=== PATIENT | female | born 1960 | race Caucasian/White ===

== ENCOUNTER 2017-12-23 08:45 | Inpatient (IN) | payer BC ==
[2017-12-23] MEDS ORDERED: MORPHINE SULFATE 2 MG/ML SYRINGE IVP STA (09:09)
[2017-12-23] MEDS ORDERED: SODIUM CHLORIDE 0.9% 500 ML 500 ML IV STA (09:09)
[2017-12-23] MEDS ORDERED: ONDANSETRON 4 MG/2 ML VIAL IVP STA (09:09)
--- NOTE | 2017-12-23 09:28 | ED ---
General Adult HPI - General Stated complaint: WEAKNESS Time Seen by Provider: 12/23/17 08:47 Source: patient, EMS, RN notes reviewed Mode of arrival: EMS Limitations: physical limitation - History of Present Illness Initial comments: This a 57-year-old female presents emergency department via EMS chief complaints weakness, abdominal pain. Patient states that she injured her back Thursday getting out of her vehicle. She states she felt a twinge. States pain progressive worsened and was unable to get out of bed on Thursday. She states she laid in bed for 2 days essentially was able to get up with some relief after taking some tramadol. Patient states that the recliner her doctor called and they placed her on some steroids. Patient states that has not helped as she stopped taking multiple medications including her diuretics because she cannot get up to go to the bathroom. Patient denies any chest pain or shortness of breath. Patient states that she just feels weak, run down. Patient states she has low back pain and pain and recent her legs. She states her urine is foul smelling, very dark in nature. Patient has no abdominal pain denies any incontinence. - Related Data Home Medications Medication Instructions Recorded Confirmed Cyanocobalamin [Vitamin B-12] 500 mcg PO DAILY 02/27/15 12/23/17 Ascorbic Acid [Vitamin C] 1,000 mg PO DAILY 12/23/17 12/23/17 Celery Seed 1 tab PO DAILY 12/23/17 Potter Extract 1 tab PO DAILY 12/23/17 Cholecalciferol [Vitamin D3] 1,000 unit PO DAILY 12/23/17 12/23/17 Coconut Oil Caps 1 cap PO DAILY 12/23/17 12/23/17 Colchicine 1.2 mg PO DIRECTED 12/23/17 12/23/17 Fish Oil/Dha/Epa [Fish Oil 1,200 1,200 mg PO DAILY 12/23/17 12/23/17 mg Fish Oil] Multivitamins, Thera [Multivitamin 1 tab PO DAILY 12/23/17 12/23/17 (formulary)] Potassium 198 mg PO DAILY 12/23/17 12/23/17 Spironolactone-Hctz 25-25Mg 1 tab PO DAILY 12/23/17 12/23/17 [Aldactazide 25-25 MG] methylPREDNISolone [Medrol Dose See Taper PO DIRECTED 12/23/17 12/23/17 Pack] Previous Rx's Medication Instructions Recorded Furosemide [Lasix] 40 mg PO DAILY #30 tab 03/03/15 Allergies Allergy/AdvReac Type Severity Reaction Status Date / Time Tetracyclines Allergy Rash/Hives Verified 12/23/17 09:26 Review of Systems ROS Statement: Those systems with pertinent positive or pertinent negative responses have been documented in the HPI. ROS Other: All systems not noted in ROS Statement are negative. Past Medical History Past Medical History: No Reported History Additional Past Medical History / Comment(s): uti, leg swelling, broke lt leg. History of Any Multi-Drug Resistant Organisms: None Reported Past Surgical History: Adenoidectomy, Appendectomy, Cholecystectomy, Orthopedic Surgery, Tonsillectomy Additional Past Surgical History / Comment(s): orif lt leg has plate and screws Past Anesthesia/Blood Transfusion Reactions: No Reported Reaction Past Psychological History: No Psychological Hx Reported Smoking Status: Never smoker Past Alcohol Use History: None Reported Past Drug Use History: None Reported - Past Family History Father History Unknown: Yes Mother History Unknown: Yes General Exam Limitations: physical limitation General appearance: alert, in no apparent distress, obese Head exam: Present: atraumatic, normocephalic, normal inspection Respiratory exam: Present: normal lung sounds bilaterally. Absent: respiratory distress, wheezes, rales, rhonchi, stridor Cardiovascular Exam: Present: regular rate, normal rhythm, normal heart sounds. Absent: systolic murmur, diastolic murmur, rubs, gallop, clicks GI/Abdominal exam: Present: soft, normal bowel sounds. Absent: distended, tenderness, guarding, rebound, rigid Extremities exam: Present: other (Patient does have full range of motion lower extremities though difficult to move, neurovascular intact) Back exam: Present: tenderness. Absent: full ROM Neurological exam: Present: alert, oriented X3, CN II-XII intact, reflexes normal. Absent: motor sensory deficit Skin exam: Present: warm, dry, intact, normal color. Absent: rash Course Vital Signs 12/23/17 12/23/17 09:07 09:42 Temperature 98.0 F Pulse Rate 90 90 Respiratory 18 18 Rate Blood Pressure 146/72 150/74 O2 Sat by Pulse 91 L 93 L Oximetry Medical Decision Making - Medical Decision Making 57-year-old female presented for multiple complaints patient has compression fracture, urinary tract infection dehydration unable to care for self will be admitted - Lab Data Result diagrams: 12/23/17 09:37 12/23/17 09:37 Lab Results 12/23/17 12/23/17 12/23/17 Range/Units 09:37 09:37 09:37 WBC 15.2 H (3.8-10.6) k/uL RBC 4.59 (3.80-5.40) m/uL Hgb 13.0 (11.4-16.0) gm/dL Hct 39.5 (34.0-46.0) % MCV 86.1 (80.0-100.0) fL MCH 28.2 (25.0-35.0) pg MCHC 32.8 (31.0-37.0) g/dL RDW 15.6 H (11.5-15.5) % Plt Count 461 H (150-450) k/uL Neutrophils % 86 % Lymphocytes % 7 % Monocytes % 6 % Eosinophils % 1 % Basophils % 0 % Neutrophils # 13.1 H (1.3-7.7) k/uL Lymphocytes # 1.1 (1.0-4.8) k/uL Monocytes # 0.8 (0-1.0) k/uL Eosinophils # 0.1 (0-0.7) k/uL Basophils # 0.0 (0-0.2) k/uL PT (9.0-12.0) sec INR (<1.2) APTT (22.0-30.0) sec Sodium 138 (137-145) mmol/L Potassium 3.4 L (3.5-5.1) mmol/L Chloride 94 L (98-107) mmol/L Carbon Dioxide 32 H (22-30) mmol/L Anion Gap 12 mmol/L BUN 17 (7-17) mg/dL Creatinine 0.53 (0.52-1.04) mg/dL Est GFR (CKD-EPI)AfAm >90 (>60 ml/min/1.73 sqM) Est GFR (CKD-EPI)NonAf >90 (>60 ml/min/1.73 sqM) Glucose 127 H (74-99) mg/dL Plasma Lactic Acid Fredo (0.7-2.0) mmol/L Calcium 8.5 (8.4-10.2) mg/dL Total Bilirubin 0.7 (0.2-1.3) mg/dL AST 38 H (14-36) U/L ALT 51 (9-52) U/L Alkaline Phosphatase 113 (38-126) U/L Total Creatine Kinase 134 (30-135) U/L CK-MB (CK-2) 0.5 (0.0-2.4) ng/mL CK-MB (CK-2) Rel Index 0.4 Troponin I <0.012 (0.000-0.034) ng/mL Total Protein 7.0 (6.3-8.2) g/dL Albumin 3.3 L (3.5-5.0) g/dL Amylase 34 (30-110) U/L Lipase 54 (23-300) U/L Urine Color Urine Appearance (Clear) Urine pH (5.0-8.0) Ur Specific [place] (1.001-1.035) Urine Protein (Negative) Urine Glucose (UA) (Negative) Urine Ketones (Negative) Urine Blood (Negative) Urine Nitrite (Negative) Urine Bilirubin (Negative) Urine Urobilinogen (<2.0) mg/dL Ur Leukocyte Esterase (Negative) Urine RBC (0-5) /hpf Urine WBC (0-5) /hpf Urine Bacteria (None) /hpf Urine Mucus (None) /hpf 12/23/17 12/23/17 12/23/17 Range/Units 09:37 09:37 10:41 WBC (3.8-10.6) k/uL RBC (3.80-5.40) m/uL Hgb (11.4-16.0) gm/dL Hct (34.0-46.0) % MCV (80.0-100.0) fL MCH (25.0-35.0) pg MCHC (31.0-37.0) g/dL RDW (11.5-15.5) % Plt Count (150-450) k/uL Neutrophils % % Lymphocytes % % Monocytes % % Eosinophils % % Basophils % % Neutrophils # (1.3-7.7) k/uL Lymphocytes # (1.0-4.8) k/uL Monocytes # (0-1.0) k/uL Eosinophils # (0-0.7) k/uL Basophils # (0-0.2) k/uL PT 10.9 (9.0-12.0) sec INR 1.1 (<1.2) APTT 25.8 (22.0-30.0) sec Sodium (137-145) mmol/L Potassium (3.5-5.1) mmol/L Chloride (98-107) mmol/L Carbon Dioxide (22-30) mmol/L Anion Gap mmol/L BUN (7-17) mg/dL Creatinine (0.52-1.04) mg/dL Est GFR (CKD-EPI)AfAm (>60 ml/min/1.73 sqM) Est GFR (CKD-EPI)NonAf (>60 ml/min/1.73 sqM) Glucose (74-99) mg/dL Plasma Lactic Acid Fredo 1.3 (0.7-2.0) mmol/L Calcium (8.4-10.2) mg/dL Total Bilirubin (0.2-1.3) mg/dL AST (14-36) U/L ALT (9-52) U/L Alkaline Phosphatase (38-126) U/L Total Creatine Kinase (30-135) U/L CK-MB (CK-2) (0.0-2.4) ng/mL CK-MB (CK-2) Rel Index Troponin I (0.000-0.034) ng/mL Total Protein (6.3-8.2) g/dL Albumin (3.5-5.0) g/dL Amylase (30-110) U/L Lipase (23-300) U/L Urine Color Yellow Urine Appearance Cloudy H (Clear) Urine pH 6.0 (5.0-8.0) Ur Specific [place] 1.015 (1.001-1.035) Urine Protein 1+ H (Negative) Urine Glucose (UA) Negative (Negative) Urine Ketones 1+ H (Negative) Urine Blood Negative (Negative) Urine Nitrite Positive H (Negative) Urine Bilirubin Negative (Negative) Urine Urobilinogen <2.0 (<2.0) mg/dL Ur Leukocyte Esterase Moderate H (Negative) Urine RBC 4 (0-5) /hpf Urine WBC 33 H (0-5) /hpf Urine Bacteria Many H (None) /hpf Urine Mucus Rare H (None) /hpf Disposition Clinical Impression: Compression fracture, Urinary tract infection, Dehydration, Inability to perform activities of daily living Disposition: ADMITTED IP TO THIS HOSP Condition: Fair Referrals: Vipin Villafana MD [Primary Care Provider] - 1-2 days
[2017-12-23 10:05] LABS: Basophils % (A) 0 %; Eosinophils # (A) 0.1 k/uL (0-0.7); Eosinophils % (A) 1 %; HCT 39.5 % (34.0-46.0); Lymphocytes # (A) 1.1 k/uL (1.0-4.8); Lymphocytes % (A) 7 %; MCH 28.2 pg (25.0-35.0); MCHC 32.8 g/dL (31.0-37.0); MCV 86.1 fL (80.0-100.0); Mean Platelet Volume 6.7; Monocytes # (A) 0.8 k/uL (0-1.0); Monocytes % (A) 6 %; Neutrophils # (A) 13.1 k/uL (1.3-7.7); Neutrophils % (A) 86 %; Platelet Count 461 k/uL (150-450); RBC 4.59 m/uL (3.80-5.40); RDW 15.6 % (11.5-15.5); WBC 15.2 k/uL (3.8-10.6)
[2017-12-23 10:10] LABS: INR 1.1 (<1.2); Partial Thromboplastin Time 25.8 sec (22.0-30.0); Prothrombin Time 10.9 sec (9.0-12.0)
[2017-12-23 10:12] LABS: ALT 51 U/L (9-52); AST 38 U/L (14-36); Albumin 3.3 g/dL (3.5-5.0); Alkaline Phosphatase 113 U/L (38-126); Amylase 34 U/L (30-110); Anion Gap 12 mmol/L; Blood Urea Nitrogen 17 mg/dL (7-17); Calcium 8.5 mg/dL (8.4-10.2); Carbon Dioxide 32 mmol/L (22-30); Chloride 94 mmol/L (98-107); Glucose 127 mg/dL (74-99); Lipase 54 U/L (23-300); Potassium 3.4 mmol/L (3.5-5.1); Sodium 138 mmol/L (137-145); Total Bilirubin 0.7 mg/dL (0.2-1.3)
[2017-12-23 10:22] LABS: Creatine Kinase 134 U/L (30-135)
[2017-12-23 10:35] LABS: Creatine Kinase MB 0.5 ng/mL (0.0-2.4); Troponin I <0.012 ng/mL (0.000-0.034)
--- NOTE | 2017-12-23 10:41 | CT ---
EXAMINATION TYPE: CT lumbar spine wo con DATE OF EXAM: 12/23/2017 10:19 AM COMPARISON: None HISTORY: Pain, weakness, unable to ambulate CT DLP: 2543.40 mGycm Automated exposure control for dose reduction was used. TECHNIQUE: Unenhanced CT of the lumbar spine was performed. Bone and soft tissue window settings are submitted as well as coronal and sagittal reconstructions. FINDINGS: Exam is somewhat suboptimal given patient body habitus. The lumbar spine vertebral bodies m aintain normal vertebral body heights and alignment. There is very mild anterior wedge compression de formity of the T11 vertebral body of approximately 20% without evidence of retropulsion. This is age- indeterminate with no prior for comparison. There are small anterior osteophytes and multilevel facet arthropathy throughout the lumbar spine wit h intervertebral disc space narrowing at L4-L5 and L5-S1 and vacuum disc phenomenon and L5-S1. Left g reater than right sacroiliac joint degenerative change and subchondral cyst formation with sclerosis is present. No evidence of acute fracture of the lumbar spine. L1-L2: Normal disc space height. No disc herniation protrusion or central stenosis. No facet joint arthropathy. No evidence for foraminal encroachment. L2-L3: Normal disc space height. No disc herniation protrusion or central stenosis. No facet joint arthropathy. No evidence for foraminal encroachment. L3-L4: There is a broad-based disc bulge resulting in mild bilateral neural foraminal narrowing with facet arthropathy. Spinal canal is limited. L4-L5: There is at least a broad-based disc bulge creating mild to moderate bilateral neural foramina l narrowing. Spinal canal is limited. L5-S1: There is a broad-based disc bulge and posterior osteophytes resulting in moderate left and mil d right neural foraminal narrowing. Spinal canal is limited. IMPRESSION: Exam is limited by patient body habitus. Evaluation of spinal canal is extremely subopti mal and evaluation for disc herniation is also extremely suboptimal. 1. Compression deformity of the T11 vertebral body of approximately 12% without retropulsion. This is age indeterminate as there are no priors for comparison to correlate with point tenderness to determ ine acuity and assess the need for MRI to evaluate for bone marrow edema. 2. Mild multilevel degenerative disc disease of the lumbar spine resulting in neural foraminal narrow ing at L4-L5 and L5-S1.
--- NOTE | 2017-12-23 11:06 | XR ---
EXAMINATION TYPE: XR chest 2V DATE OF EXAM: 12/23/2017 COMPARISON: Prior chest x-ray 01/03/[address] 01/03/2017 HISTORY: Cough and pain TECHNIQUE: Frontal and lateral views of the chest are obtained. FINDINGS: There is chronic elevation of the right hemidiaphragm. Patient is rotated. 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 There is no focal air space opacity, pleural effusion, or pneumothorax seen. The cardiac silhouette size is stable and enlarged. The osseous structures are intact. IMPRESSION: No acute cardiopulmonary process. Stable findings. Cardiomegaly.
[2017-12-23 11:09] LABS: Appearance,Urine Cloudy (Clear); Bacteria,Urine Many /hpf; Bilirubin,Urine Negative (Negative); Blood,Urine Negative (Negative); Color,Urine Yellow; Glucose,Urine (UA) Negative (Negative); Ketones,Urine 1+ (Negative); Leukocyte Esterase,Urine Moderate (Negative); Mucus,Urine Rare /hpf; Nitrite,Urine Positive (Negative); Protein,Urine 1+ (Negative); RBC,Urine 4 /hpf (0-5); Specific Gravity,Urine 1.015 (1.001-1.035); Urobilinogen,Urine <2.0 mg/dL (<2.0); WBC,Urine 33 /hpf (0-5)
[2017-12-23] MEDS ORDERED: ONDANSETRON 4 MG/2 ML VIAL IVP PRN (12:04)
[2017-12-23] MEDS ORDERED: NALOXONE 0.4 MG/ML 1 ML VIAL IV PRN (12:04)
[2017-12-23] MEDS: SODIUM CHLORIDE 0.9% 1,000 ML IV SCH (12:59)
[2017-12-23] MEDS: MORPHINE SULFATE 4 MG/ML SYRINGE IV PRN ×2 (14:38→21:56)
[2017-12-24] MEDS: MORPHINE SULFATE 4 MG/ML SYRINGE IV PRN ×4 (04:13→21:28)
[2017-12-24] MEDS: SODIUM CHLORIDE 0.9% 1,000 ML IV SCH ×2 (04:14→15:50)
--- NOTE | 2017-12-24 08:54 | P.CNOR ---
History of Present Illness - [facility] Consult date: 12/24/17 Consult reason: fracture (T11) History of present illness: Patient is very pleasant 57-year-old female who has been having severe acute onset of back pain since Thursday of last week approximately 6 days ago. Patient says that she was returning home from work where she works at [employer], and was getting out of her car and felt a twinge in her back. Over the next 2 days she is having significant pain where she was unable to really get out of bed or to leave the house because of her pain at her back and in general weakness and fatigue type feeling. She says she initially had some numbness tingling down her legs worse on left than the right but this is resolving. She is having great difficulty with getting up out of bed or mobilization and ambulation. She smokes a primary care physician and was started on some oral steroid medication which she says help with some of the numbness and tingling in her legs. However she continued have general weakness and fatigue and presented to the hospital where she was also found to have a urinary tract infection and continued fatigue and difficulty with any sort of mobilization and ambulation and she was admitted to the hospital. She had further workup with a computed tomography scan of her low back which showed that degenerative disc disease L4 5 and L5-S1 along with a compression deformity at T11 with mild compression deformity of undetermined age. We will consult in in this regard. The patient says that she does not usually have significant back pain or problems and this was a different issue than she had before. She says that about 3 years ago she did have a similar issue where she had acute onset back pain that resolved for her. Review of Systems She denies any fevers or chills. She denies chest pain shortness breath. She is morbidly obese. She says that she works full-time at some also usually quite active and has been unable to get out of bed which is quite a change for her. She does admit to having some burning and foul-smelling urine., She feels that this is due to her stopping her Lasix and trying not to because she was having great difficulty getting up out of bed Past Medical History Past Medical History: Heart Failure, Eye Disorder, Pneumonia Additional Past Medical History / Comment(s): JEAN-PIERRE with CPap, bronchitis, chronic elevated R diaghram, past L leg fracture with surgery, DJD, gout multiple joints, bilateral cataracts/glaucoma with surgery. Morbid obesity History of Any Multi-Drug Resistant Organisms: None Reported Past Surgical History: Adenoidectomy, Appendectomy, Cholecystectomy, Orthopedic Surgery, Tonsillectomy Additional Past Surgical History / Comment(s): orif lt leg has plate and screws , bilateral cataracts removed with lens and bilateral eye stented d/t glaucoma Past Anesthesia/Blood Transfusion Reactions: No Reported Reaction Smoking Status: Never smoker - Past Family History Father History Unknown: Yes Family Medical History: Diabetes Mellitus, Vascular Disorder Additional Family Medical History / Comment(s): Several abdominal aortic aneurysms, kidney stones, Mother History Unknown: Yes Family Medical History: Cancer, Hyperlipidemia Additional Family Medical History / Comment(s): Mother of ovarian cancer at the age of 72 yrs. She also had rheumatic fever/heart valve issue. Medications and Allergies Home Medications Medication Instructions Recorded Confirmed Type Cyanocobalamin [Vitamin B-12] 500 mcg PO DAILY 02/27/15 12/23/17 History Furosemide [Lasix] 40 mg PO DAILY #30 tab 03/03/15 12/23/17 Rx Ascorbic Acid [Vitamin C] 1,000 mg PO DAILY 12/23/17 12/23/17 History Celery Seed 1 tab PO DAILY 12/23/17 History Potter Extract 1 tab PO DAILY 12/23/17 History Cholecalciferol [Vitamin D3] 1,000 unit PO DAILY 12/23/17 12/23/17 History Coconut Oil Caps 1 cap PO DAILY 12/23/17 12/23/17 History Colchicine 1.2 mg PO DIRECTED 12/23/17 12/23/17 History Fish Oil/Dha/Epa [Fish Oil 1,200 1,200 mg PO DAILY 12/23/17 12/23/17 History mg Fish Oil] Multivitamins, Thera [Multivitamin 1 tab PO DAILY 12/23/17 12/23/17 History (formulary)] Potassium 198 mg PO DAILY 12/23/17 12/23/17 History Spironolactone-Hctz 25-25Mg 1 tab PO DAILY 12/23/17 12/23/17 History [Aldactazide 25-25 MG] methylPREDNISolone [Medrol Dose See Taper PO DIRECTED 12/23/17 12/23/17 History Pack] Allergies Allergy/AdvReac Type Severity Reaction Status Date / Time Tetracyclines Allergy Rash/Hives Verified 12/23/17 09:26 Physical Examination Osteopathic Statement: *. No significant issues noted on an osteopathic structural exam other than those noted in the History and Physical/Consult. - L Spine: dermatomal strength & reflexes bilateral Strength: hip flexion: 5/5 (The patient is morbidly obese and is difficult to ascertain her back but she does have significant difficulty with any sort of mobilization and trying to sit up or get out of bed. Her lower extremities she has sustained dorsal flexion plantar flexion and EHL intact I would 5 strength. Her sensory is intact. She is able to lift her leg up off the bed while she does so with significant difficulty bilaterally. She is able to flex her knees. There is no pain with internal/external rotation of her hips.) Results - Labs Labs: Abnormal Lab Results - Last 24 Hours (Table) 12/23/17 12/23/17 12/23/17 Range/Units 09:37 09:37 10:41 WBC 15.2 H (3.8-10.6) k/uL RDW 15.6 H (11.5-15.5) % Plt Count 461 H (150-450) k/uL Neutrophils # 13.1 H (1.3-7.7) k/uL Potassium 3.4 L (3.5-5.1) mmol/L Chloride 94 L (98-107) mmol/L Carbon Dioxide 32 H (22-30) mmol/L Glucose 127 H (74-99) mg/dL AST 38 H (14-36) U/L Albumin 3.3 L (3.5-5.0) g/dL Urine Appearance Cloudy H (Clear) Urine Protein 1+ H (Negative) Urine Ketones 1+ H (Negative) Urine Nitrite Positive H (Negative) Ur Leukocyte Esterase Moderate H (Negative) Urine WBC 33 H (0-5) /hpf Urine Bacteria Many H (None) /hpf Urine Mucus Rare H (None) /hpf Microbiology - Last 24 Hours (Table) 12/23/17 10:41 Urine Culture - Preliminary Urine,Catheterized H & H 12/23/17 Range/Units 09:37 Hgb 13.0 (11.4-16.0) gm/dL Hct 39.5 (34.0-46.0) % Coagulation 12/23/17 Range/Units 09:37 INR 1.1 (<1.2) Result Diagrams: 12/23/17 09:37 12/23/17 09:37 - Diagnostic results CT Scan - lumbar: report reviewed, image reviewed (Computed tomography scan reviewed her lumbar spine shows evidence of significant disc degeneration L4 5 L5-S1 with vacuum disc phenomenon. She has compression deformity at T11 approximately less than 10%, but it is difficult to determine the chronicity of the fracture. There is some facet arthrosis throughout her low back.) Assessment and Plan Assessment: Acute onset new low back pain T11 compression fracture of undetermined age, with likely new onset given her acute symptoms Morbid obesity Urinary tract infection Fatigue and deconditioning Plan: Acute onset new low back pain T11 compression fracture of undetermined age, with likely new onset given her acute symptoms Morbid obesity Urinary tract infection Fatigue and deconditioning Given the patient's acute new symptoms with her mechanism where she twisted and felt acute onset pain I think we need to treat the T11 compression deformity as an acute issue. Given her body habitus it would be not worthwhile to try any sort of bracing. I think we should see how she does with starting some mobilization with physical therapy and ambulation. The fractures appear to be quite stable and she should be able tolerate this with some pain control and appropriate biomechanics. We will have physical therapy see her today to try to start some mobilization without bracing. Certainly would like to try to avoid any surgical intervention for her but she could be a candidate for kyphoplasty. Surgical intervention would be quite difficult as well given her body habitus and her hope is to avoid any sort of surgical intervention. I agree with this. She does have acute flareup of her pain and may do well with a short course of oral steroid medication and we will continue this with her. When she is stable from medical standpoint and able to be mobile independently is okay for her to be discharged home for follow-up as outpatient. She'll continue her medical management and treatment for urinary tract infections.
[2017-12-24] MEDS: FUROSEMIDE 40 MG TAB PO SCH (10:09)
[2017-12-24] MEDS: POTASSIUM CHLORIDE ER 10 MEQ TAB.ER.PRT PO SCH (10:09)
[2017-12-24] MEDS: SPIRONOLACTONE-HCTZ 25-25MG 1 EACH TAB PO SCH (10:14)
[2017-12-24] MEDS: predniSONE 10 MG TAB PO SCH ×3 (12:10→21:28)
[2017-12-24] MEDS: [UNRECOGNIZED DRUG - OTHER] PO SCH (12:15)
[2017-12-24] MEDS ORDERED: LORATADINE 10 MG TAB PO PRN (12:47)
--- NOTE | 2017-12-24 12:47 | P.HPIM ---
History of Present Illness 57-year-old female presented to the emergency room with complaints of back pain and leg weakness was unable to get out of bed had been taking her diuretics. Review of Systems Constitutional: Reports fatigue Musculoskeletal: Reports low back pain, Reports muscle weakness Past Medical History Past Medical History: Heart Failure, Eye Disorder, Pneumonia Additional Past Medical History / Comment(s): JEAN-PIERRE with CPap, bronchitis, chronic elevated R diaghram, past L leg fracture with surgery, DJD, gout multiple joints, bilateral cataracts/glaucoma with surgery. Morbid obesity History of Any Multi-Drug Resistant Organisms: None Reported Past Surgical History: Adenoidectomy, Appendectomy, Cholecystectomy, Orthopedic Surgery, Tonsillectomy Additional Past Surgical History / Comment(s): orif lt leg has plate and screws , bilateral cataracts removed with lens and bilateral eye stented d/t glaucoma Past Anesthesia/Blood Transfusion Reactions: No Reported Reaction Smoking Status: Never smoker - Past Family History Father History Unknown: Yes Family Medical History: Diabetes Mellitus, Vascular Disorder Additional Family Medical History / Comment(s): Several abdominal aortic aneurysms, kidney stones, Mother History Unknown: Yes Family Medical History: Cancer, Hyperlipidemia Additional Family Medical History / Comment(s): Mother of ovarian cancer at the age of 72 yrs. She also had rheumatic fever/heart valve issue. Medications and Allergies Home Medications Medication Instructions Recorded Confirmed Type Cyanocobalamin [Vitamin B-12] 500 mcg PO DAILY 02/27/15 12/23/17 History Furosemide [Lasix] 40 mg PO DAILY #30 tab 03/03/15 12/23/17 Rx Ascorbic Acid [Vitamin C] 1,000 mg PO DAILY 12/23/17 12/23/17 History Celery Seed 1 tab PO DAILY 12/23/17 History Potter Extract 1 tab PO DAILY 12/23/17 History Cholecalciferol [Vitamin D3] 1,000 unit PO DAILY 12/23/17 12/23/17 History Coconut Oil Caps 1 cap PO DAILY 12/23/17 12/23/17 History Colchicine 1.2 mg PO DIRECTED 12/23/17 12/23/17 History Fish Oil/Dha/Epa [Fish Oil 1,200 1,200 mg PO DAILY 12/23/17 12/23/17 History mg Fish Oil] Multivitamins, Thera [Multivitamin 1 tab PO DAILY 12/23/17 12/23/17 History (formulary)] Potassium 198 mg PO DAILY 12/23/17 12/23/17 History Spironolactone-Hctz 25-25Mg 1 tab PO DAILY 12/23/17 12/23/17 History [Aldactazide 25-25 MG] methylPREDNISolone [Medrol Dose See Taper PO DIRECTED 12/23/17 12/23/17 History Pack] Allergies Allergy/AdvReac Type Severity Reaction Status Date / Time Tetracyclines Allergy Rash/Hives Verified 12/23/17 09:26 Physical Exam Vitals: Vital Signs Temp Pulse Pulse Resp BP BP Pulse Ox 12/24/17 12:09 98.1 F 91 18 127/60 92 L 12/24/17 10:00 97.9 F 88 18 143/70 92 L 12/24/17 09:00 18 12/24/17 08:00 91 18 12/24/17 05:28 97.8 F 86 16 124/79 95 12/23/17 21:38 97.5 F L 93 20 119/72 96 12/23/17 14:47 97.6 F 84 18 140/74 94 L 12/23/17 14:05 84 18 12/23/17 13:11 97.9 F 80 18 121/67 95 Intake and Output 12/23/17 12/24/17 12/24/17 22:59 06:59 14:59 Intake Total 480 240 Balance 480 240 Intake: Oral 480 240 Other: Voiding Method Bedpan Bedpan # Voids 1 2 0 - Constitutional General appearance: morbidly obese - EENT Eyes: PERRLA Ears: bilateral: normal - Neck Neck: normal ROM - Respiratory Respiratory: bilateral: CTA - Cardiovascular Rhythm: regular leg Peripheral Edema: bilateral: 4+ - Gastrointestinal General gastrointestinal: soft - Integumentary Integumentary: normal - Neurologic Neurologic: CNII-XII intact - Musculoskeletal Musculoskeletal: generalized weakness - Psychiatric Psychiatric: A&O x's 3, appropriate affect, intact judgment & insight Results CBC & Chem 7: 12/23/17 09:37 12/23/17 09:37 Labs: Microbiology - Last 24 Hours (Table) 12/23/17 09:37 Blood Culture - Preliminary Blood No Growth after 24 hours 12/23/17 10:41 Urine Culture - Preliminary Urine,Catheterized Chest x-ray: report reviewed Thrombosis Risk Factor Assmnt - Choose All That Apply Any of the Below Risk Factors Present?: Yes Each Factor Represents 1 point: Age 41-60 years, Obesity (BMI >25) Other Risk Factors: No Other congenital or acquired thrombophilia - If yes, enter type in comment: No Thrombosis Risk Factor Assessment Total Risk Factor Score: 2 Thrombosis Risk Factor Assessment Level: Low Risk Assessment and Plan Plan: Assessment Compression fracture T11 Lumbar degenerative disc disease Urinary tract infection Morbid obesity BMI 74 Sleep apnea CPAP Congestive heart failure history Plan Orthopedic referral physical therapy Patient on Rocephin for urinary tract infection
[2017-12-25] MEDS: MORPHINE SULFATE 4 MG/ML SYRINGE IV PRN ×2 (02:50→08:05)
[2017-12-25 06:59] LABS: Basophils % (A) 0 %; Eosinophils # (A) 0.1 k/uL (0-0.7); Eosinophils % (A) 1 %; HCT 41.6 % (34.0-46.0); HGB 13.1 gm/dL (11.4-16.0); Hypochromasia Slight; Lymphocytes # (A) 1.4 k/uL (1.0-4.8); Lymphocytes % (A) 14 %; MCHC 31.5 g/dL (31.0-37.0); Mean Platelet Volume 6.5; Monocytes # (A) 0.5 k/uL (0-1.0); Monocytes % (A) 6 %; Neutrophils # (A) 7.1 k/uL (1.3-7.7); Neutrophils % (A) 75 %; Platelet Count 486 k/uL (150-450); RBC 4.68 m/uL (3.80-5.40); RDW 15.8 % (11.5-15.5); WBC 9.5 k/uL (3.8-10.6)
[2017-12-25 07:13] LABS: Sodium 137 mmol/L (137-145)
[2017-12-25 07:14] LABS: Anion Gap 11 mmol/L; Blood Urea Nitrogen 15 mg/dL (7-17); Calcium 8.7 mg/dL (8.4-10.2); Carbon Dioxide 29 mmol/L (22-30); Chloride 97 mmol/L (98-107); Glucose 109 mg/dL (74-99)
[2017-12-25 07:15] LABS: Potassium 4.3 mmol/L (3.5-5.1)
[2017-12-25] MEDS: predniSONE 10 MG TAB PO SCH ×3 (08:08→22:22)
[2017-12-25] MEDS: POTASSIUM CHLORIDE ER 10 MEQ TAB.ER.PRT PO SCH (08:08)
[2017-12-25] MEDS: FUROSEMIDE 40 MG TAB PO SCH (08:08)
[2017-12-25] MEDS: SPIRONOLACTONE-HCTZ 25-25MG 1 EACH TAB PO SCH (08:18)
--- NOTE | 2017-12-25 09:01 | P.PN ---
Progress Note - Text Progress Note Date: 12/25/17 She is a very pleasant 57-year-old female who is seen and examined the bedside for follow-up evaluation regards to her T11 compression fracture deformity. Her pain has not significant changes compared to yesterday regards to her back pain. She states she has stayed in bed since yesterday which is causing her some hip pain. She states she is ready to get out of bed and is motivated to use the restroom today. She is hopeful to be discharged home today or tomorrow. She states prior to exacerbation of her pain she has been working a regular full-time job without restrictions. She is not currently experiencing any significant lower extremity radiculopathy bilaterally. She does have some difficulty lifting her right lower extremity off the bed. She has full range of motion bilateral ankles without difficulty. He has no new complaints of the bedside today. Physical exam: Patient is awake, alert, and oriented 3 Vital signs stable Good chest excursion with deep inspiration and expiration Patient is morbidly obese is currently lying comfortably flat on her back Dorsiflexion, plantarflexion, and extensor hallucis longus positive sustained bilaterally Patient has some difficulty with lifting lower extremities off the bed independently No signs or symptoms of DVT; no calf pain No pain with internal and external rotation of the hips bilaterally Neurovascularly intact Assessment: Acute onset new low back pain T11 compression fracture of undetermined age, with likely new onset given her acute symptoms L4-5 and L5-S1 significant degenerative disc disease with vacuum disc phenomenon Lumbar facet arthrosis Morbid obesity Urinary tract infection Fatigue and deconditioning Plan: 1. We'll continue conservative treatment in regards to her T11 compression fracture deformity. We will not plan for bracing given her body habitus. She should avoid excessive bending, twisting, lifting; no lifting greater than 10 pounds. We will plan to have her follow-up in the office in approximately 2 weeks for further evaluation. She been receiving prednisone while here in the hospital. A prescription for a prednisone taper has been signed, printed, and placed in the patient's chart for discharge. She should take this steroid taper until completion. She should avoid anti-inflammatories while on this steroid taper. From an orthopedic spine standpoint, patient is clear for discharge. 2. Patient will continue to be seen and examined by medicine for other medical diagnoses including urinary tract infection 3. Patient will follow up with Lucho Aceves PA-C or Dr. Henry Mendoza at [facility] in approximately 2 weeks following discharge 4. Patient has been discussed in detail with Dr. Henry Mendoza and he agrees with this plan
[2017-12-25] MEDS ORDERED: MORPHINE SULFATE 4 MG/ML SYRINGE IV PRN (10:43)
--- NOTE | 2017-12-25 10:43 | P.PN ---
Subjective On-call hospitalist covering for Dr. Villafana 12/25/2017, this is the first day I am taking care of the patient This is a pleasant 57 years old female with past medical history of obstructive sleep apnea on CPAP machine, history of congestive heart failure, morbidly obese. Who presents because of increased urinary frequency and new lobe back pain. Patient was found to have compression of fracture of T11, she has been evaluated by orthopedic team who recommended conservative management given her habitus and trying to surgery. No braces in view of her body habitus. Orthopedic team recommended physical therapy. Discussed the case with physical therapy team and they recommended subacute rehab. Patient has increased frequency on admission, mostly secondary to UTI is improving with treatment. Urine culture showing gram-negative bacilli. Patient is on ceftriaxone Patient denies weakness in her lower extremity, however she was lying in bed with difficulty in movement due to body habitus CONSTITUTIONAL: No fever, no malaise, no fatigue. HEENT: No recent visual problems or hearing problems. Denied any sore throat. CARDIOVASCULAR: No orthopnea, PND, no palpitations, no syncope. PULMONARY: No shortness of breath, no cough, no hemoptysis. GASTROINTESTINAL: No diarrhea, no nausea, no vomiting, no abdominal pain. Normoactive bowel sounds. NEUROLOGICAL: No headaches, no weakness, no numbness. HEMATOLOGICAL: Denies any bleeding or petechiae. GENITOURINARY: Denies any burning micturition, frequency, or urgency. MUSCULOSKELETAL/RHEUMATOLOGICAL: Denies any joint pain, swelling, or any muscle pain. ENDOCRINE: Denies any polyuria or polydipsia. Vitamin C 500 mg, ceftriaxone 1 g, Lasix 40 mg, [place] 5-325 milligrams, Claritin 10 mg, morphine 4 mg, Zofran 4 mg, potassium chloride 5 mEq, prednisone 10 mg, sodium chloride at 50 mL per hour, spironolactone-HCTZ 25-25 mg Objective - Vital Signs Vital signs: Vital Signs Temp 97.5 F L 12/25/17 06:20 Pulse 85 12/25/17 06:20 Resp 22 12/25/17 06:20 BP 140/76 12/25/17 06:20 Pulse Ox 93 L 12/25/17 06:20 Intake & Output 12/24/17 12/25/17 12/25/17 18:59 06:59 18:59 Intake Total 480 Balance 480 Weight 206 kg Intake: Oral 480 Other: Voiding Method Bedpan Bedpan Bedpan Diaper # Voids 3 3 - Exam GENERAL: The patient is alert and oriented x3, not in any acute distress. Morbidly obese. HEENT: Pupils are round and equally reacting to light. EOMI. No scleral icterus. No conjunctival pallor. Normocephalic, atraumatic. No pharyngeal erythema. No thyromegaly. CARDIOVASCULAR: S1 and S2 present. No murmurs, rubs, or gallops. PULMONARY: Chest is clear to auscultation, no wheezing or crackles. ABDOMEN: Soft, nontender, nondistended, normoactive bowel sounds. No palpable organomegaly. -MUSCULOSKELETAL: No joint swelling or deformity. Low back tenderness EXTREMITIES: No cyanosis, clubbing, or pedal edema. NEUROLOGICAL: Gross neurological examination did not reveal any focal deficits. SKIN: No rashes. - Labs CBC & Chem 7: 12/25/17 06:36 12/25/17 06:36 Labs: Abnormal Lab Results - Last 24 Hours (Table) 12/25/17 12/25/17 Range/Units 06:36 06:36 RDW 15.8 H (11.5-15.5) % Plt Count 486 H (150-450) k/uL Chloride 97 L (98-107) mmol/L Creatinine 0.43 L (0.52-1.04) mg/dL Glucose 109 H (74-99) mg/dL Microbiology - Last 24 Hours (Table) 12/23/17 10:41 Urine Culture - Final Urine,Catheterized Escherichia coli 12/23/17 09:37 Blood Culture - Preliminary Blood No Growth after 24 hours Assessment and Plan Assessment: Compression fracture T11, orthopedic team recommended conservative management Lumbar degenerative disc disease Urinary tract infection Morbid obesity BMI 74 Sleep apnea CPAP History of Congestive heart failure history Plan: This is a pleasant 57 years old morbidly obese female who presents because of compression of fracture of T11, continue with pain management. Physical therapy evaluation and management. Continue with steroid taper as per orthopedic team. Patient may benefit from subacute rehab. Resume home medication. Continue same treatment. He was symptomatic treatment. Reattempts further recommendationof the clinical course of the patient DVT prophylaxis: Subcutaneous heparin GI prophylaxis: Pepcid PT/OT: Recommended subacute rehab Prognosis is guarded
[2017-12-25] MEDS: SODIUM CHLORIDE 0.9% 1,000 ML IV SCH ×2 (10:52→17:59)
[2017-12-25] MEDS: HYDROcodone/APAP 5-325MG 1 EACH TAB PO PRN ×2 (13:09→22:23)
[2017-12-25] MEDS: [UNRECOGNIZED DRUG - OTHER] PO SCH (13:11)
[2017-12-25] MEDS ORDERED: POLYETHYLENE GLYCOL 3350 17 GM POWD.PACK PO STA (15:23)
[2017-12-25] MEDS: HEPARIN SODIUM,PORCINE 5,000 UNIT/ML 1 ML VIAL SQ SCH (22:22)
[2017-12-25] MEDS: DOCUSATE 100 MG CAP PO SCH (22:22)
[2017-12-25] MEDS: CLOTRIMAZOLE 1% CREAM 15 GM TUBE TOPICAL SCH (22:22)
[2017-12-26 07:51] LABS: Basophils # (A) 0.1 k/uL (0-0.2); Basophils % (A) 1 %; Eosinophils # (A) 0.1 k/uL (0-0.7); Eosinophils % (A) 1 %; HCT 40.3 % (34.0-46.0); HGB 13.3 gm/dL (11.4-16.0); Lymphocytes # (A) 1.6 k/uL (1.0-4.8); Lymphocytes % (A) 15 %; MCH 28.8 pg (25.0-35.0); MCHC 33.1 g/dL (31.0-37.0); MCV 86.9 fL (80.0-100.0); Mean Platelet Volume 6.4; Monocytes # (A) 0.6 k/uL (0-1.0); Monocytes % (A) 6 %; Neutrophils # (A) 8.1 k/uL (1.3-7.7); Neutrophils % (A) 77 %; Platelet Count 537 k/uL (150-450); RBC 4.63 m/uL (3.80-5.40); RDW 15.8 % (11.5-15.5); WBC 10.6 k/uL (3.8-10.6)
[2017-12-26 07:59] LABS: Anion Gap 13 mmol/L; Blood Urea Nitrogen 15 mg/dL (7-17); Calcium 9.1 mg/dL (8.4-10.2); Carbon Dioxide 32 mmol/L (22-30); Chloride 94 mmol/L (98-107); Glucose 100 mg/dL (74-99); Potassium 3.6 mmol/L (3.5-5.1); Sodium 139 mmol/L (137-145)
[2017-12-26] MEDS ORDERED: LACTULOSE 20 GM/30 ML CUP PO PRN (09:09)
--- NOTE | 2017-12-26 09:10 | P.PN ---
Subjective On-call hospitalist covering for Dr. Villafana 12/25/2017, this is the first day I am taking care of the patient This is a pleasant 57 years old female with past medical history of obstructive sleep apnea on CPAP machine, history of congestive heart failure, morbidly obese. Who presents because of increased urinary frequency and new lobe back pain. Patient was found to have compression of fracture of T11, she has been evaluated by orthopedic team who recommended conservative management given her habitus and trying to surgery. No braces in view of her body habitus. Orthopedic team recommended physical therapy. Discussed the case with physical therapy team and they recommended subacute rehab. Patient has increased frequency on admission, mostly secondary to UTI is improving with treatment. Urine culture showing gram-negative bacilli. Patient is on ceftriaxone Patient denies weakness in her lower extremity, however she was lying in bed with difficulty in movement due to body habitus 12/26/2017 Patient presents with T 11 fracture has been evaluated by orthopedic team and recommended conservative therapy. Patient back pain was better today with 3/10 in severity. Patient was able to move out of bed yesterday and she was sitting in the chair for 3 hours. He'll have difficulty with mobility due to her body habitus and medical problems. Physical therapy recommended subacute rehab. Leukocytosis improved to normal level @ 10.6 K. Patient remains afebrile and vital signs stable. CBC and BMP were unremarkable. Patient with UTI and urine culture showing E. coli sensitive to many medication. Patient remains on ceftriaxone. Patient complained from constipation her her medication was upgraded. Patient is still on steroid taper as per orthopedic recommendations CONSTITUTIONAL: No fever, no malaise, no fatigue. HEENT: No recent visual problems or hearing problems. Denied any sore throat. CARDIOVASCULAR: No orthopnea, PND, no palpitations, no syncope. PULMONARY: No shortness of breath, no cough, no hemoptysis. GASTROINTESTINAL: No diarrhea, no nausea, no vomiting, no abdominal pain. Normoactive bowel sounds. NEUROLOGICAL: No headaches, no weakness, no numbness. HEMATOLOGICAL: Denies any bleeding or petechiae. GENITOURINARY: Denies any burning micturition, frequency, or urgency. MUSCULOSKELETAL/RHEUMATOLOGICAL: Denies any joint pain, swelling, or any muscle pain. ENDOCRINE: Denies any polyuria or polydipsia. Vitamin C 500 mg, ceftriaxone 1 g, Lasix 40 mg, [place] 5-325 milligrams, Claritin 10 mg, morphine 4 mg, Zofran 4 mg, potassium chloride 5 mEq, prednisone 10 mg, sodium chloride at 50 mL per hour, spironolactone-HCTZ 25-25 mg Objective - Vital Signs Vital signs: Vital Signs Temp 98 F 12/26/17 04:52 Pulse 79 12/26/17 04:52 Resp 17 12/26/17 04:52 BP 160/74 12/26/17 04:52 Pulse Ox 17 L 12/26/17 04:52 Intake & Output 12/25/17 12/26/17 12/26/17 18:59 06:59 18:59 Intake Total 1830 400 Balance 1830 400 Weight 206 kg 199 kg Intake: Intake, IV Titration 650 400 Amount Sodium Chloride 0.9% 1, 600 350 000 ml @ 50 mls/hr IV . Q20H [facility] Rx#:[id number] cefTRIAXone 1,000 mg In 50 50 Sodium Chloride 0.9% 50 ml @ 100 mls/hr IVPB Q12HR [facility] Rx#:[id number] Oral 1180 Other: Voiding Method Bedpan Bedpan Diaper Diaper # Voids 4 1 - Exam GENERAL: The patient is alert and oriented x3, not in any acute distress. Morbidly obese. HEENT: Pupils are round and equally reacting to light. EOMI. No scleral icterus. No conjunctival pallor. Normocephalic, atraumatic. No pharyngeal erythema. No thyromegaly. CARDIOVASCULAR: S1 and S2 present. No murmurs, rubs, or gallops. PULMONARY: Chest is clear to auscultation, no wheezing or crackles. ABDOMEN: Soft, nontender, nondistended, normoactive bowel sounds. No palpable organomegaly. -MUSCULOSKELETAL: No joint swelling or deformity. Low back tenderness EXTREMITIES: No cyanosis, clubbing, or pedal edema. NEUROLOGICAL: Gross neurological examination did not reveal any focal deficits. SKIN: No rashes. - Labs CBC & Chem 7: 12/26/17 06:29 12/26/17 06:29 Labs: Abnormal Lab Results - Last 24 Hours (Table) 12/26/17 12/26/17 Range/Units 06:29 06:29 RDW 15.8 H (11.5-15.5) % Plt Count 537 H (150-450) k/uL Neutrophils # 8.1 H (1.3-7.7) k/uL Chloride 94 L (98-107) mmol/L Carbon Dioxide 32 H (22-30) mmol/L Creatinine 0.48 L (0.52-1.04) mg/dL Glucose 100 H (74-99) mg/dL Microbiology - Last 24 Hours (Table) 12/23/17 09:37 Blood Culture - Preliminary Blood No Growth after 48 hours 12/23/17 10:41 Urine Culture - Final Urine,Catheterized Escherichia coli Assessment and Plan Assessment: Compression fracture T11, orthopedic team recommended conservative management Lumbar degenerative disc disease Urinary tract infection Morbid obesity BMI 74 Sleep apnea CPAP History of Congestive heart failure history Plan: This is a pleasant 57 years old morbidly obese female who presents because of compression of fracture of T11, continue with pain management. Physical therapy evaluation and management. Continue with steroid taper as per orthopedic team. Patient may benefit from subacute rehab. Resume home medication. Continue same treatment. He was symptomatic treatment. Reattempts further recommendationof the clinical course of the patient DVT prophylaxis: Subcutaneous heparin GI prophylaxis: Pepcid PT/OT: Recommended subacute rehab Prognosis is guarded
[2017-12-26] MEDS: POTASSIUM CHLORIDE ER 10 MEQ TAB.ER.PRT PO SCH (09:18)
[2017-12-26] MEDS: DOCUSATE 100 MG CAP PO SCH ×2 (09:18→21:45)
[2017-12-26] MEDS: HEPARIN SODIUM,PORCINE 5,000 UNIT/ML 1 ML VIAL SQ SCH ×2 (09:18→21:45)
[2017-12-26] MEDS: FUROSEMIDE 40 MG TAB PO SCH (09:18)
[2017-12-26] MEDS: CLOTRIMAZOLE 1% CREAM 15 GM TUBE TOPICAL SCH ×2 (09:18→21:45)
[2017-12-26] MEDS: predniSONE 10 MG TAB PO SCH ×3 (09:19→21:45)
[2017-12-26] MEDS: SPIRONOLACTONE-HCTZ 25-25MG 1 EACH TAB PO SCH (09:19)
[2017-12-26] MEDS: HYDROcodone/APAP 5-325MG 1 EACH TAB PO PRN (13:05)
[2017-12-26] MEDS: [UNRECOGNIZED DRUG - OTHER] PO SCH (13:05)
[2017-12-26] MEDS ORDERED: BISACODYL 5 MG TABLET.DR PO STA (14:55)
[2017-12-26] MEDS ORDERED: BISACODYL 10 MG SUPP RECTAL STA (15:03)
[2017-12-26] MEDS: SODIUM CHLORIDE 0.9% 1,000 ML IV SCH (15:17)
[2017-12-26] MEDS ORDERED: KETOROLAC 30 MG/ML 1 ML VIAL IVP STA (22:23)
[2017-12-27 07:06] LABS: Basophils % (A) 0 %; Eosinophils # (A) 0.2 k/uL (0-0.7); Eosinophils % (A) 1 %; HCT 41.2 % (34.0-46.0); HGB 13.5 gm/dL (11.4-16.0); Lymphocytes # (A) 1.5 k/uL (1.0-4.8); Lymphocytes % (A) 13 %; MCH 28.1 pg (25.0-35.0); MCHC 32.7 g/dL (31.0-37.0); MCV 85.8 fL (80.0-100.0); Mean Platelet Volume 6.5; Monocytes # (A) 0.7 k/uL (0-1.0); Monocytes % (A) 6 %; Neutrophils # (A) 9.5 k/uL (1.3-7.7); Neutrophils % (A) 79 %; Platelet Count 578 k/uL (150-450); RDW 15.5 % (11.5-15.5)
[2017-12-27 07:27] LABS: Anion Gap 12 mmol/L; Blood Urea Nitrogen 17 mg/dL (7-17); Calcium 9.2 mg/dL (8.4-10.2); Carbon Dioxide 30 mmol/L (22-30); Chloride 96 mmol/L (98-107); Glucose 108 mg/dL (74-99); Potassium 3.2 mmol/L (3.5-5.1); Sodium 138 mmol/L (137-145)
[2017-12-27] MEDS: [UNRECOGNIZED DRUG - OTHER] PO SCH (08:32)
[2017-12-27] MEDS: predniSONE 10 MG TAB PO SCH ×3 (08:32→21:22)
[2017-12-27] MEDS: SPIRONOLACTONE-HCTZ 25-25MG 1 EACH TAB PO SCH (08:32)
[2017-12-27] MEDS: CLOTRIMAZOLE 1% CREAM 15 GM TUBE TOPICAL SCH ×2 (08:32→21:21)
[2017-12-27] MEDS: DOCUSATE 100 MG CAP PO SCH ×2 (08:33→21:22)
[2017-12-27] MEDS: FUROSEMIDE 40 MG TAB PO SCH (08:33)
[2017-12-27] MEDS: HEPARIN SODIUM,PORCINE 5,000 UNIT/ML 1 ML VIAL SQ SCH ×2 (08:33→21:22)
[2017-12-27] MEDS: POTASSIUM CHLORIDE ER 10 MEQ TAB.ER.PRT PO SCH (08:33)
[2017-12-27] MEDS: SODIUM CHLORIDE 0.9% 1,000 ML IV SCH ×2 (08:34→23:33)
--- NOTE | 2017-12-27 11:25 | P.PN ---
Subjective On-call hospitalist covering for Dr. Villafana 12/25/2017, this is the first day I am taking care of the patient This is a pleasant 57 years old female with past medical history of obstructive sleep apnea on CPAP machine, history of congestive heart failure, morbidly obese. Who presents because of increased urinary frequency and new lobe back pain. Patient was found to have compression of fracture of T11, she has been evaluated by orthopedic team who recommended conservative management given her habitus and trying to surgery. No braces in view of her body habitus. Orthopedic team recommended physical therapy. Discussed the case with physical therapy team and they recommended subacute rehab. Patient has increased frequency on admission, mostly secondary to UTI is improving with treatment. Urine culture showing gram-negative bacilli. Patient is on ceftriaxone Patient denies weakness in her lower extremity, however she was lying in bed with difficulty in movement due to body habitus 12/26/2017 Patient presents with T 11 fracture has been evaluated by orthopedic team and recommended conservative therapy. Patient back pain was better today with 3/10 in severity. Patient was able to move out of bed yesterday and she was sitting in the chair for 3 hours. He'll have difficulty with mobility due to her body habitus and medical problems. Physical therapy recommended subacute rehab. Leukocytosis improved to normal level @ 10.6 K. Patient remains afebrile and vital signs stable. CBC and BMP were unremarkable. Patient with UTI and urine culture showing E. coli sensitive to many medication. Patient remains on ceftriaxone. Patient complained from constipation her her medication was upgraded. Patient is still on steroid taper as per orthopedic recommendations 12/27/2017 Patient back pain is better controlled today and she started moving around. She still have constipation however she has big bowel movement today and she is happy about that. Due to body habitus still needs help for mobility. Her urinary signs and symptoms looks controlled with no more complaints. Continue with pain management. However patient does not want the narcotics as they may contribute to her constipation and she prefers NSAIDs, risks benefits and alternatives are explained for the patient with a recommendation of avoiding continuous using for possible side effect profile CONSTITUTIONAL: No fever, no malaise, no fatigue. HEENT: No recent visual problems or hearing problems. Denied any sore throat. CARDIOVASCULAR: No orthopnea, PND, no palpitations, no syncope. PULMONARY: No shortness of breath, no cough, no hemoptysis. GASTROINTESTINAL: No diarrhea, no nausea, no vomiting, no abdominal pain. Normoactive bowel sounds. NEUROLOGICAL: No headaches, no weakness, no numbness. HEMATOLOGICAL: Denies any bleeding or petechiae. GENITOURINARY: Denies any burning micturition, frequency, or urgency. MUSCULOSKELETAL/RHEUMATOLOGICAL: Denies any joint pain, swelling, or any muscle pain. ENDOCRINE: Denies any polyuria or polydipsia. Vitamin C 500 mg, ceftriaxone 1 g, Lasix 40 mg, Claritin 10 mg, morphine 4 mg, Zofran 4 mg, potassium chloride 5 mEq, prednisone 10 mg, sodium chloride at 50 mL per hour, spironolactone-HCTZ 25-25 mg, Toradol 15 g Objective - Vital Signs Vital signs: Vital Signs Temp 97.7 F 12/27/17 07:00 Pulse 84 12/27/17 07:00 Resp 19 12/27/17 07:00 BP 170/79 12/27/17 07:00 Pulse Ox 93 L 12/27/17 07:00 Intake & Output 12/26/17 12/27/17 12/27/17 18:59 06:59 18:59 Intake Total 800 120 Balance 800 120 Weight 202.5 kg Intake: Intake, IV Titration 800 Amount Sodium Chloride 0.9% 1, 800 000 ml @ 50 mls/hr IV . Q20H [facility] Rx#:[id number] Oral 120 Other: Voiding Method Bedpan Bedpan Diaper Diaper # Voids 2 1 # Bowel Movements 1 - Exam GENERAL: The patient is alert and oriented x3, not in any acute distress. Morbidly obese. HEENT: Pupils are round and equally reacting to light. EOMI. No scleral icterus. No conjunctival pallor. Normocephalic, atraumatic. No pharyngeal erythema. No thyromegaly. CARDIOVASCULAR: S1 and S2 present. No murmurs, rubs, or gallops. PULMONARY: Chest is clear to auscultation, no wheezing or crackles. ABDOMEN: Soft, nontender, nondistended, normoactive bowel sounds. No palpable organomegaly. -MUSCULOSKELETAL: No joint swelling or deformity. Low back tenderness EXTREMITIES: No cyanosis, clubbing, or pedal edema. NEUROLOGICAL: Gross neurological examination did not reveal any focal deficits. SKIN: No rashes. - Labs CBC & Chem 7: 12/27/17 06:46 12/27/17 06:46 Labs: Abnormal Lab Results - Last 24 Hours (Table) 12/27/17 12/27/17 Range/Units 06:46 06:46 WBC 12.0 H (3.8-10.6) k/uL Plt Count 578 H (150-450) k/uL Neutrophils # 9.5 H (1.3-7.7) k/uL Potassium 3.2 L (3.5-5.1) mmol/L Chloride 96 L (98-107) mmol/L Glucose 108 H (74-99) mg/dL Microbiology - Last 24 Hours (Table) 12/23/17 09:37 Blood Culture - Preliminary Blood No Growth after 72 hours Assessment and Plan Assessment: Compression fracture T11, orthopedic team recommended conservative management Lumbar degenerative disc disease Urinary tract infection Morbid obesity BMI 74 Sleep apnea CPAP History of Congestive heart failure history Plan: This is a pleasant 57 years old morbidly obese female who presents because of compression of fracture of T11, continue with pain management. Physical therapy evaluation and management. Continue with steroid taper as per orthopedic team. Patient may benefit from subacute rehab. Resume home medication. Continue same treatment. He was symptomatic treatment. Reattempts further recommendationof the clinical course of the patient DVT prophylaxis: Subcutaneous heparin GI prophylaxis: Pepcid PT/OT: Recommended subacute rehab Prognosis is guarded
[2017-12-27] MEDS: KETOROLAC 30 MG/ML 1 ML VIAL IVP SCH ×2 (14:12→23:32)
[2017-12-27] MEDS ORDERED: POTASSIUM CHLORIDE ER 20 MEQ TAB.ER PO STA (20:06)
[2017-12-28] MEDS: DOCUSATE 100 MG CAP PO SCH ×2 (08:24→22:37)
[2017-12-28] MEDS: predniSONE 10 MG TAB PO SCH (08:24)
[2017-12-28] MEDS: FUROSEMIDE 40 MG TAB PO SCH (08:24)
[2017-12-28] MEDS: HEPARIN SODIUM,PORCINE 5,000 UNIT/ML 1 ML VIAL SQ SCH ×2 (08:24→22:37)
[2017-12-28] MEDS: POTASSIUM CHLORIDE ER 10 MEQ TAB.ER.PRT PO SCH (08:24)
[2017-12-28] MEDS: SPIRONOLACTONE-HCTZ 25-25MG 1 EACH TAB PO SCH (08:24)
[2017-12-28] MEDS: KETOROLAC 30 MG/ML 1 ML VIAL IVP SCH ×3 (08:26→23:12)
--- NOTE | 2017-12-28 08:39 | P.PN ---
Subjective On-call hospitalist covering for Dr. Villafana 12/25/2017, this is the first day I am taking care of the patient This is a pleasant 57 years old female with past medical history of obstructive sleep apnea on CPAP machine, history of congestive heart failure, morbidly obese. Who presents because of increased urinary frequency and new lobe back pain. Patient was found to have compression of fracture of T11, she has been evaluated by orthopedic team who recommended conservative management given her habitus and trying to surgery. No braces in view of her body habitus. Orthopedic team recommended physical therapy. Discussed the case with physical therapy team and they recommended subacute rehab. Patient has increased frequency on admission, mostly secondary to UTI is improving with treatment. Urine culture showing gram-negative bacilli. Patient is on ceftriaxone Patient denies weakness in her lower extremity, however she was lying in bed with difficulty in movement due to body habitus 12/26/2017 Patient presents with T 11 fracture has been evaluated by orthopedic team and recommended conservative therapy. Patient back pain was better today with 3/10 in severity. Patient was able to move out of bed yesterday and she was sitting in the chair for 3 hours. He'll have difficulty with mobility due to her body habitus and medical problems. Physical therapy recommended subacute rehab. Leukocytosis improved to normal level @ 10.6 K. Patient remains afebrile and vital signs stable. CBC and BMP were unremarkable. Patient with UTI and urine culture showing E. coli sensitive to many medication. Patient remains on ceftriaxone. Patient complained from constipation her her medication was upgraded. Patient is still on steroid taper as per orthopedic recommendations 12/27/2017 Patient back pain is better controlled today and she started moving around. She still have constipation however she has big bowel movement today and she is happy about that. Due to body habitus still needs help for mobility. Her urinary signs and symptoms looks controlled with no more complaints. Continue with pain management. However patient does not want the narcotics as they may contribute to her constipation and she prefers NSAIDs, risks benefits and alternatives are explained for the patient with a recommendation of avoiding continuous using for possible side effect profile 12/28/2017 Patient back pain is controlled now and she could be out of bed to chair for 8 hours yesterday. Mobility is improved. She still suffering from some constipation but is much better than before and patient happy with the current regiment. Denies chest pain or dyspnea. No fever. Patient is pending rehab placement as recommended by medical team. She has mild leukocytosis at 12 K however she is on steroids. Objective - Vital Signs Vital signs: Vital Signs Temp 97.8 F 12/28/17 07:10 Pulse 83 12/28/17 07:10 Resp 18 12/28/17 07:10 BP 147/74 12/28/17 07:10 Pulse Ox 92 L 12/28/17 07:10 Intake & Output 12/27/17 12/28/17 12/28/17 18:59 06:59 18:59 Intake Total 970 1900 Balance 970 1900 Weight 204.2 kg Intake: Intake, IV Titration 450 900 Amount Sodium Chloride 0.9% 1, 400 800 000 ml @ 50 mls/hr IV . Q20H JL Rx#:[id number] cefTRIAXone 1,000 mg In 50 100 Sodium Chloride 0.9% 50 ml @ 100 mls/hr IVPB Q12HR JL Rx#:[id number] Oral 520 1000 Other: Voiding Method Bedpan Bedpan Diaper Diaper # Voids 2 # Bowel Movements 2 - Exam GENERAL: The patient is alert and oriented x3, not in any acute distress. Morbidly obese. HEENT: Pupils are round and equally reacting to light. EOMI. No scleral icterus. No conjunctival pallor. Normocephalic, atraumatic. No pharyngeal erythema. No thyromegaly. CARDIOVASCULAR: S1 and S2 present. No murmurs, rubs, or gallops. PULMONARY: Chest is clear to auscultation, no wheezing or crackles. ABDOMEN: Soft, nontender, nondistended, normoactive bowel sounds. No palpable organomegaly. -MUSCULOSKELETAL: No joint swelling or deformity. Low back tenderness EXTREMITIES: No cyanosis, clubbing, or pedal edema. NEUROLOGICAL: Gross neurological examination did not reveal any focal deficits. SKIN: No rashes. - Labs CBC & Chem 7: 12/27/17 06:46 12/27/17 06:46 Labs: Microbiology - Last 24 Hours (Table) 12/23/17 09:37 Blood Culture - Preliminary Blood No Growth after 96 hours Assessment and Plan Assessment: Compression fracture T11, orthopedic team recommended conservative management Lumbar degenerative disc disease Urinary tract infection Morbid obesity BMI 74 Sleep apnea CPAP History of Congestive heart failure history Plan: This is a pleasant 57 years old morbidly obese female who presents because of compression of fracture of T11, continue with pain management. Physical therapy evaluation and management. Continue with steroid taper as per orthopedic team. Patient may benefit from subacute rehab. Resume home medication. Continue same treatment. He was symptomatic treatment. Reattempts further recommendationof the clinical course of the patient DVT prophylaxis: Subcutaneous heparin GI prophylaxis: Pepcid PT/OT: Recommended subacute rehab Prognosis is guarded
[2017-12-28] MEDS: CLOTRIMAZOLE 1% CREAM 15 GM TUBE TOPICAL SCH ×2 (09:22→22:38)
[2017-12-28 10:57] LABS: Basophils % (A) 0 %; Eosinophils # (A) 0.1 k/uL (0-0.7); Eosinophils % (A) 1 %; HCT 39.5 % (34.0-46.0); HGB 12.9 gm/dL (11.4-16.0); Lymphocytes # (A) 1.7 k/uL (1.0-4.8); Lymphocytes % (A) 17 %; MCH 28.2 pg (25.0-35.0); MCHC 32.7 g/dL (31.0-37.0); Monocytes # (A) 0.7 k/uL (0-1.0); Monocytes % (A) 6 %; Neutrophils # (A) 7.7 k/uL (1.3-7.7); Neutrophils % (A) 73 %; Platelet Count 600 k/uL (150-450); RBC 4.59 m/uL (3.80-5.40); RDW 15.6 % (11.5-15.5); WBC 10.5 k/uL (3.8-10.6)
[2017-12-28 11:18] LABS: Anion Gap 8 mmol/L; Blood Urea Nitrogen 23 mg/dL (7-17); Calcium 8.8 mg/dL (8.4-10.2); Carbon Dioxide 32 mmol/L (22-30); Chloride 98 mmol/L (98-107); Glucose 105 mg/dL (74-99); Sodium 138 mmol/L (137-145)
--- NOTE | 2017-12-28 11:52 | P.PN ---
Subjective Patient resting in bed discussed discharge options. Patient unsure she wants to go home or go to short-term rehab. Once discussed with spouse Objective - Vital Signs Vital signs: Vital Signs Temp 97.8 F 12/28/17 07:10 Pulse 83 12/28/17 07:10 Resp 18 12/28/17 07:10 BP 147/74 12/28/17 07:10 Pulse Ox 92 L 12/28/17 07:10 Intake & Output 12/27/17 12/28/17 12/28/17 18:59 06:59 18:59 Intake Total 970 1900 Balance 970 1900 Weight 204.2 kg Intake: Intake, IV Titration 450 900 Amount Sodium Chloride 0.9% 1, 400 800 000 ml @ 50 mls/hr IV . Q20H JL Rx#:[id number] cefTRIAXone 1,000 mg In 50 100 Sodium Chloride 0.9% 50 ml @ 100 mls/hr IVPB Q12HR JL Rx#:[id number] Oral 520 1000 Other: Voiding Method Bedpan Bedpan Bedpan Diaper Diaper Diaper # Voids 2 # Bowel Movements 2 - Constitutional General appearance: Present: morbidly obese - EENT Eyes: Present: PERRLA Ears: bilateral: normal - Neck Neck: Present: normal ROM - Respiratory Respiratory: bilateral: CTA - Cardiovascular Rhythm: regular - Gastrointestinal General gastrointestinal: Present: soft - Integumentary Integumentary: Present: normal - Neurologic Neurologic: Present: CNII-XII intact - Musculoskeletal Musculoskeletal: Present: generalized weakness - Psychiatric Psychiatric: Present: A&O x's 3, appropriate affect, intact judgment & insight - Labs CBC & Chem 7: 12/28/17 10:25 12/28/17 10:25 Labs: Abnormal Lab Results - Last 24 Hours (Table) 12/28/17 12/28/17 Range/Units 10:25 10:25 RDW 15.6 H (11.5-15.5) % Plt Count 600 H (150-450) k/uL Carbon Dioxide 32 H (22-30) mmol/L BUN 23 H (7-17) mg/dL Creatinine 0.47 L (0.52-1.04) mg/dL Glucose 105 H (74-99) mg/dL Microbiology - Last 24 Hours (Table) 12/23/17 09:37 Blood Culture - Preliminary Blood No Growth after 96 hours Assessment and Plan Plan: Assessment T11 compression fracture Lumbar degenerative disc disease Urinary tract infection positive E. coli Dehydration Morbid obesity BMI 72 History of congestive heart failure Sleep apnea uses CPAP at night Generalized weakness Plan Discharge home ordered to extended care facility for short-term rehab
[2017-12-28] MEDS: [UNRECOGNIZED DRUG - OTHER] PO SCH (11:53)
[2017-12-29] MEDS: SODIUM CHLORIDE 0.9% 1,000 ML IV SCH (02:58)
[2017-12-29] MEDS: DOCUSATE 100 MG CAP PO SCH (08:09)
[2017-12-29] MEDS: SPIRONOLACTONE-HCTZ 25-25MG 1 EACH TAB PO SCH (08:10)
[2017-12-29] MEDS: FUROSEMIDE 40 MG TAB PO SCH (08:10)
[2017-12-29] MEDS: predniSONE 10 MG TAB PO SCH (08:11)
[2017-12-29] MEDS: POTASSIUM CHLORIDE ER 10 MEQ TAB.ER.PRT PO SCH (08:12)
[2017-12-29] MEDS: HEPARIN SODIUM,PORCINE 5,000 UNIT/ML 1 ML VIAL SQ SCH (08:13)
[2017-12-29] MEDS: CLOTRIMAZOLE 1% CREAM 15 GM TUBE TOPICAL SCH (08:15)
[2017-12-29] MEDS: KETOROLAC 30 MG/ML 1 ML VIAL IVP SCH ×2 (08:48→10:29)
[2017-12-29 09:58] LABS: Basophils # (A) 0.1 k/uL (0-0.2); Basophils % (A) 1 %; Eosinophils # (A) 0.3 k/uL (0-0.7); Eosinophils % (A) 3 %; HCT 42.2 % (34.0-46.0); HGB 13.6 gm/dL (11.4-16.0); Lymphocytes % (A) 18 %; MCHC 32.1 g/dL (31.0-37.0); MCV 87.1 fL (80.0-100.0); Mean Platelet Volume 6.4; Monocytes # (A) 0.6 k/uL (0-1.0); Monocytes % (A) 5 %; Neutrophils # (A) 8.2 k/uL (1.3-7.7); Neutrophils % (A) 72 %; Platelet Count 622 k/uL (150-450); RBC 4.84 m/uL (3.80-5.40); RDW 15.8 % (11.5-15.5); WBC 11.4 k/uL (3.8-10.6)
[2017-12-29 10:05] LABS: Potassium 4.3 mmol/L (3.5-5.1)
[2017-12-29 10:07] LABS: Anion Gap 9 mmol/L; Blood Urea Nitrogen 26 mg/dL (7-17); Calcium 9.2 mg/dL (8.4-10.2); Carbon Dioxide 34 mmol/L (22-30); Chloride 97 mmol/L (98-107); Glucose 116 mg/dL (74-99); Sodium 140 mmol/L (137-145)
--- NOTE | 2017-12-29 12:16 | P.DS ---
Providers Date of admission: 12/23/17 11:51 Expected date of discharge: 12/29/17 Attending physician: Vipin Villafana Consults: 12/23/17 12:05 Consult Physician Urgent Consulting Provider: Corie Mendoza Consult Reason/Comments: Compression fracture Do you want consulting provider notified?: Yes Primary care physician: Vipin Villafana Hospital Course: 57-year-old female presented to the emergency room with complaints of severe back pain was unable to ambulate home. Patient was evaluated by orthopedics for compression fracture T 11. Patient was given anti-inflammatories and steroids. Patient states she has some relief. Patient wishes to be discharged home with home healthcare Assessment Lumbar degenerative disc disease T11 compression fracture Urinary tract infection positive E. coli Morbid obesity BMI 74 Dehydration History of congestive heart failure Sleep apnea CPAP use Plan Patient will be discharged home with home healthcare for physical therapy Augmentin started for urinary tract infection Patient Condition at Discharge: Fair Plan - Discharge Summary Discharge Rx Participant: No New Discharge Prescriptions: New predniSONE See Taper PO DIRECTED #24 tab Amoxicillin/Potassium Clav [Augmentin 875-125 Tablet] 1 tab PO Q12HR 7 Days # 14 tab Clotrimazole Cream [Lotrimin Cream] 1 applic TOPICAL BID #1 applic Docusate [Colace] 100 mg PO BID #60 cap Loratadine [Claritin] 10 mg PO DAILY PRN tab PRN Reason: Allergy Symptoms Continue Cyanocobalamin [Vitamin B-12] 500 mcg PO DAILY Furosemide [Lasix] 40 mg PO DAILY #30 tab Ascorbic Acid [Vitamin C] 1,000 mg PO DAILY Celery Seed 1 tab PO DAILY Potter Extract 1 tab PO DAILY Cholecalciferol [Vitamin D3] 1,000 unit PO DAILY Coconut Oil Caps 1 cap PO DAILY Colchicine 1.2 mg PO DIRECTED Fish Oil/Dha/Epa [Fish Oil 1,200 mg Fish Oil] 1,200 mg PO DAILY Multivitamins, Thera [Multivitamin (formulary)] 1 tab PO DAILY Potassium 198 mg PO DAILY Spironolactone-Hctz 25-25Mg [Aldactazide 25-25 MG] 1 tab PO DAILY Discontinued methylPREDNISolone [Medrol Dose Pack] See Taper PO DIRECTED Discharge Medication List Cyanocobalamin [Vitamin B-12] 500 mcg PO DAILY 02/27/15 [History] Furosemide [Lasix] 40 mg PO DAILY #30 tab 03/03/15 [Rx] Ascorbic Acid [Vitamin C] 1,000 mg PO DAILY 12/23/17 [History] Celery Seed 1 tab PO DAILY 12/23/17 [History] Potter Extract 1 tab PO DAILY 12/23/17 [History] Cholecalciferol [Vitamin D3] 1,000 unit PO DAILY 12/23/17 [History] Coconut Oil Caps 1 cap PO DAILY 12/23/17 [History] Colchicine 1.2 mg PO DIRECTED 12/23/17 [History] Fish Oil/Dha/Epa [Fish Oil 1,200 mg Fish Oil] 1,200 mg PO DAILY 12/23/17 [ History] Multivitamins, Thera [Multivitamin (formulary)] 1 tab PO DAILY 12/23/17 [History ] Potassium 198 mg PO DAILY 12/23/17 [History] Spironolactone-Hctz 25-25Mg [Aldactazide 25-25 MG] 1 tab PO DAILY 12/23/17 [ History] predniSONE See Taper PO DIRECTED #24 tab 12/25/17 [Rx] Amoxicillin/Potassium Clav [Augmentin 875-125 Tablet] 1 tab PO Q12HR 7 Days #14 tab 12/29/17 [Rx] Clotrimazole Cream [Lotrimin Cream] 1 applic TOPICAL BID #1 applic 12/29/17 [Rx] Docusate [Colace] 100 mg PO BID #60 cap 12/29/17 [Rx] Loratadine [Claritin] 10 mg PO DAILY PRN tab 12/29/17 [Rx] Follow up Appointment(s)/Referral(s): Vipin Villafana MD [Primary Care Provider] - 2 Weeks (Follow-up for T11 fracture) Lucho cAeves PAC [PHYSICIAN STORE PRODUCT DEMONSTRATOR] - 2 Weeks (Patient may follow-up with Lucho Aceves PA-C or Dr. Henry Mendoza at [facility] in 2 weeks following discharge. ) [facility], [NON-STAFF] - 1 Week Activity/Diet/Wound Care/Special Instructions: 1. Patient should avoid excessive bending, twisting, and lifting; no lifting greater than 10 pounds
[2017-12-29 12:35] VITALS: BP 141/69; PULSE 84; RESP 15; TEMP 97.7
[2017-12-29] MEDS: [UNRECOGNIZED DRUG - OTHER] PO SCH (14:15)
== END 2017-12-29 16:55 | disposition home health service (06) | DRG 543 ==
LOC: EC 08:45 → 3NMEDONC 11:51
PROVIDERS: ADMIT Family Medicine; ATTEND Family Medicine
DX: M48.54XA Collapsed vertebra, not elsewhere classified, thoracic region, initial encounter for fracture (principal); N39.0 Urinary tract infection, site not specified; Z68.45 Body mass index [BMI] 70 or greater, adult; B96.20 Unspecified Escherichia coli [E. coli] as the cause of diseases classified elsewhere; E66.01 Morbid (severe) obesity due to excess calories; E86.0 Dehydration; F17.200 Nicotine dependence, unspecified, uncomplicated; G47.33 Obstructive sleep apnea (adult) (pediatric); H40.9 Unspecified glaucoma; I50.9 Heart failure, unspecified; Z99.89 Dependence on other enabling machines and devices; J42 Unspecified chronic bronchitis; K59.00 Constipation, unspecified; M47.9 Spondylosis, unspecified; M51.36 Other intervertebral disc degeneration, lumbar region; M51.37 Other intervertebral disc degeneration, lumbosacral region; Z80.41 Family history of malignant neoplasm of ovary; Z83.3 Family history of diabetes mellitus; Z79.899 Other long term (current) drug therapy; Z88.1 Allergy status to other antibiotic agents
CPT/HCPCS: 36415; 71046; 72131; 80048; 80053; 81001; 82150; 82550; 82553; 83605; 83690; 84484; 85025; 85610; 85730; 87040; 87077; 87086; 87186; 94660; 96361; 96374; 96375; 99285

== ENCOUNTER → 2018-02-03 | Outpatient (CLI) | payer BC | END | disposition home or self-care (01) | LOC: RADUSMAIN 17:03 | PROVIDERS: ATTEND Physician Assistant | DX: Z53.9 Procedure and treatment not carried out, unspecified reason (principal) ==

== ENCOUNTER → 2020-06-05 | Outpatient (CLI) | payer BC | END | disposition home or self-care (01) | LOC: LABWHC1 16:47 | PROVIDERS: ATTEND Family Medicine | DX: Z20.822 Contact with and (suspected) exposure to COVID-19 (principal) | CPT/HCPCS: U0003; C9803 ==

== ENCOUNTER 2020-06-06 16:17 | Emergency (ER) | payer BC ==
[2020-06-06 17:59] VITALS: PULSE 95; RESP 18
[2020-06-06] MEDS ORDERED: ACETAMINOPHEN TAB 325 MG TAB PO STA (20:08)
--- NOTE | 2020-06-06 20:08 | ED ---
General Adult HPI - General Chief complaint: Headache Stated complaint: covid+/infusion-sent by PCP Source: patient Mode of arrival: wheelchair Limitations: no limitations - History of Present Illness Initial comments: Patient is a 59-year-old female past history of heart failure and obesity who presents emergency department from Dr. Villafana's office. States that she was found to be coated positive today. Patient was swabbed yesterday. States that she has had a headache and low-grade fever. Patient denies any chest pain or shortness of breath. No nausea or vomiting. He did recommend that she come into the emergency room for BAM infusion. No other alleviating, precipitating or modifying factors - Related Data Home Medications Medication Instructions Recorded Confirmed Cyanocobalamin [Vitamin B-12] 500 mcg PO DAILY 02/27/15 12/23/17 Ascorbic Acid [Vitamin C] 1,000 mg PO DAILY 12/23/17 12/23/17 Celery Seed 1 tab PO DAILY 12/23/17 Potter Extract 1 tab PO DAILY 12/23/17 Cholecalciferol [Vitamin D3 (25 1,000 unit PO DAILY 12/23/17 12/23/17 Mcg = 1000 Iu)] Coconut Oil Caps 1 cap PO DAILY 12/23/17 12/23/17 Colchicine 1.2 mg PO DIRECTED 12/23/17 12/23/17 Fish Oil/Dha/Epa [Fish Oil 1,200 1,200 mg PO DAILY 12/23/17 12/23/17 mg Fish Oil] Multivitamins, Thera [Multivitamin 1 tab PO DAILY 12/23/17 12/23/17 (formulary)] Potassium 198 mg PO DAILY 12/23/17 12/23/17 Spironolactone-Hctz 25-25Mg 1 tab PO DAILY 12/23/17 12/23/17 [Aldactazide 25-25 MG] Previous Rx's Medication Instructions Recorded Furosemide [Lasix] 40 mg PO DAILY #30 tab 03/03/15 predniSONE See Taper PO DIRECTED #24 tab 12/25/17 Amoxicillin/Potassium Clav 1 tab PO Q12HR 7 Days #14 tab 12/29/17 [Augmentin 875-125 Tablet] Clotrimazole Cream [Lotrimin Cream] 1 applic TOPICAL BID #1 applic 12/29/17 Docusate [Colace] 100 mg PO BID #60 cap 12/29/17 Loratadine [Claritin] 10 mg PO DAILY PRN tab 12/29/17 Allergies Allergy/AdvReac Type Severity Reaction Status Date / Time Tetracyclines Allergy Rash/Hives Verified 12/23/17 09:26 Review of Systems ROS Statement: Those systems with pertinent positive or pertinent negative responses have been documented in the HPI. ROS Other: All systems not noted in ROS Statement are negative. Past Medical History Past Medical History: Heart Failure, Eye Disorder, Pneumonia Additional Past Medical History / Comment(s): JEAN-PIERRE with CPap, bronchitis, chronic elevated R diaghram, past L leg fracture with surgery, DJD, gout multiple joints, bilateral cataracts/glaucoma with surgery. Morbid obesity History of Any Multi-Drug Resistant Organisms: None Reported Past Surgical History: Adenoidectomy, Appendectomy, Cholecystectomy, Orthopedic Surgery, Tonsillectomy Additional Past Surgical History / Comment(s): orif lt leg has plate and screws, bilateral cataracts removed with lens and bilateral eye stented d/t glaucoma Past Anesthesia/Blood Transfusion Reactions: No Reported Reaction Past Psychological History: No Psychological Hx Reported Smoking Status: Never smoker Past Alcohol Use History: None Reported Past Drug Use History: None Reported - Past Family History Father History Unknown: Yes Family Medical History: Diabetes Mellitus, Vascular Disorder Additional Family Medical History / Comment(s): Several abdominal aortic aneurysms, kidney stones, Mother History Unknown: Yes Family Medical History: Cancer, Hyperlipidemia Additional Family Medical History / Comment(s): Mother of ovarian cancer at the age of 72 yrs. She also had rheumatic fever/heart valve issue. General Exam Limitations: no limitations Course Vital Signs 06/06/20 17:50 Temperature 100.2 F H Pulse Rate 95 Respiratory 18 Rate Blood Pressure 139/79 O2 Sat by Pulse 95 Oximetry Medical Decision Making - Medical Decision Making Upon arrival patient was placed into room 23. There are history of physical exam is performed. Patient is saturating 95% without increased worker breathing. Temp is 100.2. Did administer the patient Tylenol. She does present for BAM infusion and meets criteria for BMI >35. Patient given infusion. Instructed to follow-up with her primary care doctor to 4 days. Return to the emergency room for any new or worsening symptoms. Patient was discharged home in stable condition Disposition Clinical Impression: COVID-19 Disposition: HOME SELF-CARE Condition: Stable Instructions (If sedation given, give patient instructions): Coronavirus Disease 2019 (COVID-19) Additional Instructions: Please follow-up with yourr primary care doctor in 2-4 days. Return to the emergency room for any new or worsening symptoms. You received the BAM infusion today Is patient prescribed a controlled substance at d/c from ED?: No Referrals: Vipin Villafana MD [Primary Care Provider] - 1-2 days Time of Disposition: 20:08
[2020-06-06] MEDS ORDERED: BAMLANIVIMAB (EUA) 700 MG, ETESEVIMAB (EUA) 1,400 MG in SODIUM CHLORIDE 0.9% 50 ML IVPB ONE (20:45)
[2020-06-06] MEDS ORDERED: SODIUM CHLORIDE 0.9% 50 ML IVPB ONE (21:15)
[2020-06-06 22:44] VITALS: BP 157/69; TEMP 98.9
== END 2020-06-06 22:44 | disposition home or self-care (01) ==
LOC: EC 16:17
DX: U07.1 COVID-19 (principal); G47.33 Obstructive sleep apnea (adult) (pediatric); E66.9 Obesity, unspecified; I50.9 Heart failure, unspecified
CPT/HCPCS: 99283; 96365; 96361; Q0245

== ENCOUNTER 2020-06-11 15:51 | Inpatient (IN) | payer BC ==
[2020-06-11] MEDS ORDERED: ALBUTEROL HFA INHALER INHALATION STA (16:57)
[2020-06-11] MEDS ORDERED: ALBUTEROL HFA INHALER INHALATION PRN (16:57)
--- NOTE | 2020-06-11 17:01 | ED ---
General Adult HPI - General Chief complaint: Shortness of Breath Stated complaint: sob Time Seen by Provider: 06/11/20 16:19 Source: patient, EMS, RN notes reviewed Mode of arrival: EMS Limitations: no limitations - History of Present Illness Initial comments: Patient is a pleasant 59-year-old female presenting to the emergency department with difficulty in breathing. Onset of symptoms was over a week ago. Patient does have cough, nonproductive. Patient was diagnosed with Crohn of virus infection. Patient did receive monoclonal antibody treatment several days ago. Symptoms worsened since that time. Patient has fatigue and decreased appetite. No vomiting or diarrhea. No loss of taste or smell. - Related Data Home Medications Medication Instructions Recorded Confirmed Cyanocobalamin [Vitamin B-12] 500 mcg PO DAILY 02/27/15 12/23/17 Ascorbic Acid [Vitamin C] 1,000 mg PO DAILY 12/23/17 12/23/17 Celery Seed 1 tab PO DAILY 12/23/17 Potter Extract 1 tab PO DAILY 12/23/17 Cholecalciferol [Vitamin D3 (25 1,000 unit PO DAILY 12/23/17 12/23/17 Mcg = 1000 Iu)] Coconut Oil Caps 1 cap PO DAILY 12/23/17 12/23/17 Colchicine 1.2 mg PO DIRECTED 12/23/17 12/23/17 Fish Oil/Dha/Epa [Fish Oil 1,200 1,200 mg PO DAILY 12/23/17 12/23/17 mg Fish Oil] Multivitamins, Thera [Multivitamin 1 tab PO DAILY 12/23/17 12/23/17 (formulary)] Potassium 198 mg PO DAILY 12/23/17 12/23/17 Spironolactone-Hctz 25-25Mg 1 tab PO DAILY 12/23/17 12/23/17 [Aldactazide 25-25 MG] Previous Rx's Medication Instructions Recorded Furosemide [Lasix] 40 mg PO DAILY #30 tab 03/03/15 predniSONE See Taper PO DIRECTED #24 tab 12/25/17 Amoxicillin/Potassium Clav 1 tab PO Q12HR 7 Days #14 tab 12/29/17 [Augmentin 875-125 Tablet] Clotrimazole Cream [Lotrimin Cream] 1 applic TOPICAL BID #1 applic 12/29/17 Docusate [Colace] 100 mg PO BID #60 cap 12/29/17 Loratadine [Claritin] 10 mg PO DAILY PRN tab 12/29/17 Allergies Allergy/AdvReac Type Severity Reaction Status Date / Time Tetracyclines Allergy Rash/Hives Verified 06/11/20 16:21 Review of Systems ROS Statement: Those systems with pertinent positive or pertinent negative responses have been documented in the HPI. ROS Other: All systems not noted in ROS Statement are negative. Constitutional: Reports: fever Eyes: Denies: eye pain ENT: Denies: ear pain Respiratory: Reports: cough, dyspnea Cardiovascular: Denies: chest pain Endocrine: Reports: fatigue Gastrointestinal: Reports: as per HPI. Denies: abdominal pain, nausea, vomiting Genitourinary: Denies: dysuria Musculoskeletal: Denies: back pain Skin: Denies: rash Neurological: Denies: weakness Past Medical History Past Medical History: Heart Failure, Eye Disorder, Pneumonia Additional Past Medical History / Comment(s): JEAN-PIERRE with CPap, bronchitis, chronic elevated R diaghram, past L leg fracture with surgery, DJD, gout multiple joints, bilateral cataracts/glaucoma with surgery. Morbid obesity History of Any Multi-Drug Resistant Organisms: None Reported Past Surgical History: Adenoidectomy, Appendectomy, Cholecystectomy, Orthopedic Surgery, Tonsillectomy Additional Past Surgical History / Comment(s): orif lt leg has plate and screws, bilateral cataracts removed with lens and bilateral eye stented d/t glaucoma Past Anesthesia/Blood Transfusion Reactions: No Reported Reaction Past Psychological History: No Psychological Hx Reported Smoking Status: Never smoker Past Alcohol Use History: None Reported Past Drug Use History: None Reported - Past Family History Father History Unknown: Yes Family Medical History: Diabetes Mellitus, Vascular Disorder Additional Family Medical History / Comment(s): Several abdominal aortic aneurysms, kidney stones, Mother History Unknown: Yes Family Medical History: Cancer, Hyperlipidemia Additional Family Medical History / Comment(s): Mother of ovarian cancer at the age of 72 yrs. She also had rheumatic fever/heart valve issue. General Exam Limitations: no limitations General appearance: alert, in no apparent distress Head exam: Present: normocephalic Eye exam: Present: normal appearance Neck exam: Present: normal inspection Respiratory exam: Present: rhonchi Cardiovascular Exam: Present: regular rate, normal rhythm GI/Abdominal exam: Present: soft. Absent: tenderness Extremities exam: Present: normal inspection. Absent: pedal edema, calf tenderness Neurological exam: Present: alert Psychiatric exam: Present: normal affect, normal mood Skin exam: Present: normal color Course Vital Signs 06/11/20 06/11/20 16:18 16:43 Pulse Rate 93 Respiratory 22 Rate Blood Pressure 144/81 O2 Sat by Pulse 98 85 L Oximetry EKG Findings - EKG Comments: EKG Findings:: Normal sinus rhythm at 99. RI 140. QRS 84. QT 370. QTc 474. Normal axis. Normal QRS. Flat T waves. Medical Decision Making - Medical Decision Making Patient was reevaluated and updated. Secondary to hypoxia case was discussed with Dr. Lei, who will admit covering for Dr. Villafana. - Lab Data Result diagrams: 06/11/20 17:10 06/11/20 17:10 Lab Results 06/11/20 06/11/20 06/11/20 Range/Units 17:10 17:10 17:10 WBC 5.4 (3.8-10.6) k/uL RBC 4.82 (3.80-5.40) m/uL Hgb 13.1 (11.4-16.0) gm/dL Hct 41.3 (34.0-46.0) % MCV 85.7 (80.0-100.0) fL MCH 27.2 (25.0-35.0) pg MCHC 31.7 (31.0-37.0) g/dL RDW 16.3 H (11.5-15.5) % Plt Count 348 (150-450) k/uL MPV 6.6 Anisocytosis Slight PT 10.4 (9.0-12.0) sec INR 1.0 (<1.2) APTT 27.4 (22.0-30.0) sec Sodium 137 (137-145) mmol/L Potassium 3.6 (3.5-5.1) mmol/L Chloride 94 L (98-107) mmol/L Carbon Dioxide 35 H (22-30) mmol/L Anion Gap 8 mmol/L BUN 11 (7-17) mg/dL Creatinine 0.60 (0.52-1.04) mg/dL Est GFR (CKD-EPI)AfAm >90 (>60 ml/min/1.73 sqM) Est GFR (CKD-EPI)NonAf >90 (>60 ml/min/1.73 sqM) Glucose 108 H (74-99) mg/dL Plasma Lactic Acid Fredo (0.7-2.0) mmol/L Calcium 8.5 (8.4-10.2) mg/dL Magnesium 1.6 (1.6-2.3) mg/dL Total Bilirubin 0.5 (0.2-1.3) mg/dL AST 55 H (14-36) U/L ALT 48 H (4-34) U/L Alkaline Phosphatase 101 (38-126) U/L Lactate Dehydrogenase 808 H (313-618) U/L C-Reactive Protein 218.9 H (<10.0) mg/L Total Protein 6.5 (6.3-8.2) g/dL Albumin 3.6 (3.5-5.0) g/dL 06/11/20 Range/Units 17:10 WBC (3.8-10.6) k/uL RBC (3.80-5.40) m/uL Hgb (11.4-16.0) gm/dL Hct (34.0-46.0) % MCV (80.0-100.0) fL MCH (25.0-35.0) pg MCHC (31.0-37.0) g/dL RDW (11.5-15.5) % Plt Count (150-450) k/uL MPV Anisocytosis PT (9.0-12.0) sec INR (<1.2) APTT (22.0-30.0) sec Sodium (137-145) mmol/L Potassium (3.5-5.1) mmol/L Chloride (98-107) mmol/L Carbon Dioxide (22-30) mmol/L Anion Gap mmol/L BUN (7-17) mg/dL Creatinine (0.52-1.04) mg/dL Est GFR (CKD-EPI)AfAm (>60 ml/min/1.73 sqM) Est GFR (CKD-EPI)NonAf (>60 ml/min/1.73 sqM) Glucose (74-99) mg/dL Plasma Lactic Acid Fredo 1.0 (0.7-2.0) mmol/L Calcium (8.4-10.2) mg/dL Magnesium (1.6-2.3) mg/dL Total Bilirubin (0.2-1.3) mg/dL AST (14-36) U/L ALT (4-34) U/L Alkaline Phosphatase (38-126) U/L Lactate Dehydrogenase (313-618) U/L C-Reactive Protein (<10.0) mg/L Total Protein (6.3-8.2) g/dL Albumin (3.5-5.0) g/dL - Radiology Data Radiology results: image reviewed (Chest x-ray shows bilateral fluffy infiltrates) Disposition Clinical Impression: COVID-19 Disposition: ADMITTED IP TO THIS HOSP Is patient prescribed a controlled substance at d/c from ED?: No Referrals: Vipin Villafana MD [Primary Care Provider] - 1-2 days Decision Time: 18:35
--- NOTE | 2020-06-11 17:35 | XR ---
EXAMINATION TYPE: XR chest 1V portable DATE OF EXAM: 06/11/2020 COMPARISON: 12/23/2017 HISTORY: Short of breath TECHNIQUE: Single view FINDINGS: Heart appears enlarged. There is pulmonary interstitial and airspace edema. There is elevat ed right diaphragm. There are chest leads. IMPRESSION: There is new pulmonary edema compared to old exam that could be acute heart failure or de veloping RDS. There is chronic elevation of the right diaphragm with atelectasis right lung base.
[2020-06-11 17:41] LABS: Partial Thromboplastin Time 27.4 sec (22.0-30.0); Prothrombin Time 10.4 sec (9.0-12.0)
[2020-06-11 17:47] LABS: Anisocytosis Slight; HCT 41.3 % (34.0-46.0); HGB 13.1 gm/dL (11.4-16.0); MCH 27.2 pg (25.0-35.0); MCHC 31.7 g/dL (31.0-37.0); MCV 85.7 fL (80.0-100.0); Mean Platelet Volume 6.6; Platelet Count 348 k/uL (150-450); RBC 4.82 m/uL (3.80-5.40); RDW 16.3 % (11.5-15.5); WBC 5.4 k/uL (3.8-10.6)
[2020-06-11 17:55] LABS: ALT 48 U/L (4-34); AST 55 U/L (14-36); African American GFR (CKD) >90 (>60 ml/min/1.73 sqM); Albumin 3.6 g/dL (3.5-5.0); Alkaline Phosphatase 101 U/L (38-126); Anion Gap 8 mmol/L; Blood Urea Nitrogen 11 mg/dL (7-17); Calcium 8.5 mg/dL (8.4-10.2); Carbon Dioxide 35 mmol/L (22-30); Chloride 94 mmol/L (98-107); Glucose 108 mg/dL (74-99); LDH 808 U/L (313-618); Magnesium 1.6 mg/dL (1.6-2.3); Non-African American GFR(CKD) >90 (>60 ml/min/1.73 sqM); Potassium 3.6 mmol/L (3.5-5.1); Sodium 137 mmol/L (137-145); Total Bilirubin 0.5 mg/dL (0.2-1.3); Total Protein 6.5 g/dL (6.3-8.2)
[2020-06-11 18:07] LABS: C Reactive Protein 218.9 mg/L (<10.0)
[2020-06-11] MEDS ORDERED: NALOXONE 0.4 MG/ML 1 ML VIAL IV PRN (18:38)
[2020-06-11] MEDS: SODIUM CHLORIDE 0.9% 1,000 ML IV SCH (18:50)
[2020-06-11 19:23] LABS: Band Neutrophils % 1 %; Lymphocytes # (M) 0.76 k/uL (1.0-4.8); Metamyelocytes # (M) 0.16 k/uL (0); Metamyelocytes % 3 %; Monocytes # (M) 0.81 k/uL (0-1.0); Neutrophils % (M) 67 %; Nucleated Red Blood Cells 0 /100 WBC (0-0); Total Cells Counted 100
[2020-06-11] MEDS: CHOLECALCIFEROL 25 MCG (1000 IU) TABLET PO SCH (19:29)
[2020-06-11] MEDS: ENOXAPARIN 40 MG/0.4 ML SYRINGE SQ SCH (19:29)
[2020-06-11] MEDS: DEXAMETHASONE SOD PHOSPHATE 10 MG/ML 1 ML VIAL IV SCH (19:29)
[2020-06-11] MEDS: ZINC SULFATE 220 MG CAP PO SCH (19:30)
[2020-06-11] MEDS: ACETAMINOPHEN TAB 500 MG TAB PO PRN (19:30)
[2020-06-11] MEDS ORDERED: COLCHICINE 0.6 MG EACH PO PRN (20:00)
[2020-06-11] MEDS ORDERED: ALBUTEROL HFA INHALER INHALATION SCH (20:00)
[2020-06-11] MEDS: ASCORBIC ACID 500 MG TAB PO SCH (20:08)
[2020-06-11] MEDS ORDERED: REMDESIVIR 200 MG in SODIUM CHLORIDE 0.9% 250 ML IVPB ONE (22:30)
[2020-06-12 04:28] LABS: Ferritin 322.9 ng/mL (10.0-291.0)
[2020-06-12] MEDS: ALBUTEROL HFA INHALER INHALATION SCH ×3 (07:55→21:24)
[2020-06-12] MEDS: BENZONATATE 100 MG CAP PO SCH ×3 (08:11→20:33)
[2020-06-12] MEDS: SPIRONOLACTONE 25 MG TAB PO SCH (08:11)
[2020-06-12] MEDS: LORATADINE 10 MG TAB PO SCH (08:12)
[2020-06-12] MEDS: FUROSEMIDE 40 MG TAB PO SCH (08:12)
[2020-06-12] MEDS: CHOLECALCIFEROL 25 MCG (1000 IU) TABLET PO SCH (08:12)
[2020-06-12] MEDS: ZINC SULFATE 220 MG CAP PO SCH (08:12)
[2020-06-12] MEDS: ASCORBIC ACID 500 MG TAB PO SCH ×2 (08:12→20:33)
[2020-06-12] MEDS: DEXAMETHASONE SOD PHOSPHATE 10 MG/ML 1 ML VIAL IV SCH (08:12)
[2020-06-12] MEDS: ENOXAPARIN 40 MG/0.4 ML SYRINGE SQ SCH (08:12)
[2020-06-12] MEDS ORDERED: NON FORMULARY DRUG (Zinc [Zinc] 50 MG Tablet) PO SCH (09:00)
[2020-06-12] MEDS ORDERED: ZINC PO SCH (09:00)
[2020-06-12] MEDS ORDERED: MELOXICAM 7.5 MG TAB PO SCH (09:00)
[2020-06-12] MEDS ORDERED: VITAMIN C PO SCH (09:00)
--- NOTE | 2020-06-12 12:42 | P.HPIM ---
History of Present Illness H&P Date: 06/12/20 Chief Complaint: Covid 19 pneumonia 59-year-old female presented to the emergency department with difficulty in breathing for one week duration. Patient was diagnosed with Covid 19 infection several days ago receive monoclonal antibody therapy. Patient has significant medical history of Crohn's disease, heart failure, past history of pneumonias, and morbid obesity. Diagnostic testing revealed in emergency department elevated inflammatory markers positive Covid 19.Chest x-ray shows bilateral opacity infiltrates. Patient endorses fever, chills, shortness of breath, shortness of breath on exertion, midsternal chest pain, and generalized weakness. Review of Systems Constitutional: Reports chills, Reports fatigue, Reports lethargy, Reports night sweats, Reports poor appetite Cardiovascular: Reports decreased exercise tolerance, Reports dyspnea on exertion, Reports shortness of breath Respiratory: Reports dyspnea, Reports respiratory infections Musculoskeletal: Reports muscle weakness Neurological: Reports weakness Psychiatric: Reports anxiety Past Medical History Past Medical History: Heart Failure, Eye Disorder, Pneumonia Additional Past Medical History / Comment(s): JEAN-PIERRE with CPap, bronchitis, chronic elevated R diaghram, past L leg fracture with surgery, DJD, gout multiple joints, bilateral cataracts/glaucoma with surgery. Morbid obesity History of Any Multi-Drug Resistant Organisms: None Reported Past Surgical History: Adenoidectomy, Appendectomy, Cholecystectomy, Orthopedic Surgery, Tonsillectomy Additional Past Surgical History / Comment(s): orif lt leg has plate and screws, bilateral cataracts removed with lens and bilateral eye stented d/t glaucoma Past Anesthesia/Blood Transfusion Reactions: No Reported Reaction Past Psychological History: No Psychological Hx Reported Additional Psychological History / Comment(s): Pt resides with spouse. She uses a cane and at night a walker. She works in real estate. Smoking Status: Never smoker Past Alcohol Use History: None Reported Past Drug Use History: None Reported - Past Family History Father History Unknown: Yes Family Medical History: Diabetes Mellitus, Vascular Disorder Additional Family Medical History / Comment(s): Several abdominal aortic aneurysms, kidney stones, Mother History Unknown: Yes Family Medical History: Cancer, Hyperlipidemia Additional Family Medical History / Comment(s): Mother of ovarian cancer at the age of 72 yrs. She also had rheumatic fever/heart valve issue. Medications and Allergies Home Medications and Allergies Comment(s): Medications and allergies reviewed Home Medications Medication Instructions Recorded Confirmed Type Furosemide [Lasix] 40 mg PO DAILY #30 tab 03/03/15 06/11/20 Rx Colchicine 1.2 mg PO DIRECTED 12/23/17 06/11/20 History Albuterol Inhaler [Ventolin Hfa 1 - 2 puff INHALATION RT-Q6H PRN 06/11/20 06/11/20 History Inhaler] Cetirizine HCl [Zyrtec] 10 mg PO DAILY 06/11/20 06/11/20 History Cholecalciferol [Vitamin D3 (25 250 mcg PO DAILY 06/11/20 06/11/20 History Mcg = 1000 Iu)] Meloxicam [Mobic] 15 mg PO DAILY 06/11/20 06/11/20 History Spironolactone [Aldactone] 25 mg PO DAILY 06/11/20 06/11/20 History Vitamin C W/ Zinc 1 tab PO DAILY 06/11/20 06/11/20 History Zinc 50 mg PO DAILY 06/11/20 06/11/20 History Allergies Allergy/AdvReac Type Severity Reaction Status Date / Time Tetracyclines Allergy Rash/Hives Verified 06/11/20 19:08 Physical Exam Vitals: Vital Signs Temp Pulse Pulse Resp BP BP Pulse Ox 06/12/20 10:00 98.7 F 82 16 125/78 94 L 06/12/20 08:12 96 06/12/20 05:45 98.3 F 76 18 138/81 96 06/12/20 02:00 98.3 F 81 22 115/65 95 06/11/20 20:14 100.4 F H 95 20 149/80 91 L 06/11/20 19:55 7 L 06/11/20 19:00 96 7 L 94 L 06/11/20 18:30 98 18 96 06/11/20 18:00 96 40 H 96 06/11/20 17:30 98 12 96 06/11/20 17:00 96 25 H 149/79 96 06/11/20 16:43 85 L 06/11/20 16:30 96 26 H 144/81 100 06/11/20 16:18 93 22 144/81 98 06/11/20 16:14 97 Intake and Output 06/11/20 06/12/20 06/12/20 22:59 06:59 14:59 Other: Voiding Method Toilet Diaper # Voids 2 3 Weight 176.901 kg - Constitutional General appearance: morbidly obese - EENT Eyes: EOMI, PERRLA Ears: bilateral: normal - Neck Neck: normal ROM Carotids: bilateral: upstroke normal - Respiratory Respiratory: bilateral: diminished (Anterior and posterior lung pna) - Cardiovascular Normal sinus rhythm Heart rate: 78 Rhythm: regular Heart sounds: normal: S1, S2 foot Peripheral Edema: bilateral: Trace radial pulse Peripheral Pulses: bilateral: Normal dorsalis pedis Peripheral Pulses: bilateral: Normal - Gastrointestinal General gastrointestinal: normal bowel sounds - Integumentary Integumentary: decreased turgor, pale - Neurologic Neurologic: CNII-XII intact - Musculoskeletal Musculoskeletal: generalized weakness - Psychiatric Psychiatric: A&O x's 3, appropriate affect, intact judgment & insight Results CBC & Chem 7: 06/11/20 17:10 06/11/20 17:10 Labs: Abnormal Lab Results - Last 24 Hours (Table) 06/11/20 06/11/20 06/11/20 Range/Units 17:10 17:10 17:10 RDW 16.3 H (11.5-15.5) % Lymphocytes # (Manual) 0.76 L (1.0-4.8) k/uL Metamyelocytes # (Man) 0.16 H (0) k/uL Chloride 94 L (98-107) mmol/L Carbon Dioxide 35 H (22-30) mmol/L Glucose 108 H (74-99) mg/dL Ferritin 322.9 H (10.0-291.0) ng/mL AST 55 H (14-36) U/L ALT 48 H (4-34) U/L Lactate Dehydrogenase 808 H (313-618) U/L C-Reactive Protein 218.9 H (<10.0) mg/L Procalcitonin 0.18 H (0.02-0.09) ng/mL Coronavirus (PCR) (Not Detectd) 06/11/20 Range/Units 17:46 RDW (11.5-15.5) % Lymphocytes # (Manual) (1.0-4.8) k/uL Metamyelocytes # (Man) (0) k/uL Chloride (98-107) mmol/L Carbon Dioxide (22-30) mmol/L Glucose (74-99) mg/dL Ferritin (10.0-291.0) ng/mL AST (14-36) U/L ALT (4-34) U/L Lactate Dehydrogenase (313-618) U/L C-Reactive Protein (<10.0) mg/L Procalcitonin (0.02-0.09) ng/mL Coronavirus (PCR) Detected A (Not Detectd) Chest x-ray: report reviewed Thrombosis Risk Factor Assmnt - Choose All That Apply Each Factor Represents 1 point: Age 41-60 years, Obesity (BMI >25) Thrombosis Risk Factor Assessment Total Risk Factor Score: 2 Thrombosis Risk Factor Assessment Level: Low Risk Assessment and Plan Assessment: Covid 19 infection acute hypoxic respiratory failure Crohn's disease heart failure unspecified obstructive sleep apnea with CPAP degenerative disc disease morbid obesity Plan: Covid 19 pneumonia continue IV Decadron, vitamin supplements, and consultation with pulmonary critical care for recommendations and treatment plan acute hypoxic failure continue oxygen therapy to keep oxygen saturation's greater than 94%, encouraged incense parameter 10 times in our continue home medications continue medical management further recommendations to come based on patient's clinical condition Time with Patient: Greater than 30
--- NOTE | 2020-06-12 12:45 | P.CNPUL ---
History of Present Illness Consult date: 06/12/20 Reason for consult: dyspnea, pneumonia History of present illness: 59-year-old female patient, obese, with known history of congestion heart brett [place], initially presented emergency department on 06/06/2020 for headache and low-grade fever and she denied back then having any chest pain or shortness of breath. No gastrointestinal symptoms. The patient was positive covid 19 and the patient was given monoclonal antibody with BAM infusion. The patient tolerated the infusion well and the patient was discharged home. The patient came back to the emergency department on 06/11/2020 with difficulty in breathing. The patient had increased cough and her symptoms are getting worse and the patient was complaining of some shortness of breath. No nausea. No vomiting. No diarrhea. No change in taste or smell. She was quite fatigued and she had diminished appetite. The patient was found to be hypoxemic and the patient was placed on oxygen for a pulse ox of 85% and currently the patient is on 6 L of Oxymizer nasal cannula. White cell count is normal at 5.4 with a hemoglobin of 13, the patient does have lymphopenia, coagulation profile is within normal limits, the BUN is at 11 with a creatinine of 0.6, LFTs show mild transaminitis with an AST of 55, ALT of 44, LDH level is at 808 with a CRP of 218. The chest x-ray showing smaller lung volumes and extensive perihilar and lower lobe pulmonary infiltrates bilateral. The patient is already started on Decadron 6 mg IV every 24 hours. The patient will also on Lovenox 40 mg subcu e very 24 hours. The patient is receiving her outpatient medications and she'll be admitted to the floor. Review of Systems Constitutional: Reports chills, Reports fatigue, Reports fever, Reports lethargy, Reports poor appetite, Reports weakness Eyes: denies as per HPI, denies blurred vision, denies bulging eye, denies decreased vision, denies diplopia, denies discharge, denies dry eye, denies irritation, denies itching, denies pain, denies photophobia, denies loss of peripheral vision, denies loss of vision, denies tunnel vision/blind spots Ears: deny: decreased hearing, ear discharge, earache, tinnitus Ears, nose, mouth and throat: Reports as per HPI Breasts: absent: as per HPI, change in shape, gynecomastia, masses, nipple discharge, pain, skin changes, swelling Cardiovascular: Reports dyspnea on exertion Respiratory: Reports cough, Reports dyspnea Gastrointestinal: Reports as per HPI Genitourinary: Reports as per HPI Menstruation: Reports as per HPI Musculoskeletal: Reports as per HPI, Reports muscle weakness Musculoskeletal: absent: ankle pain, ankle stiffness, ankle swelling, as per HPI, elbow pain, elbow stiffness, elbow swelling, foot pain, foot stiffness, foot swelling, hand pain, hand stiffness, hand swelling, hip pain, hip st iffness, hip swelling, knee pain, knee stiffness, knee swelling, shoulder pain, shoulder stiffness, shoulder swelling, wrist pain, wrist stiffness, wrist swelling Neurological: Reports weakness Psychiatric: Reports as per HPI Endocrine: Reports as per HPI Hematologic/Lymphatic: Reports as per HPI Allergic/Immunologic: Reports as per HPI Past Medical History Past Medical History: Heart Failure, Eye Disorder, Pneumonia Additional Past Medical History / Comment(s): JEAN-PIERRE with CPap, bronchitis, chronic elevated R diaghram, past L leg fracture with surgery, DJD, gout multiple joints, bilateral cataracts/glaucoma with surgery. Morbid obesity History of Any Multi-Drug Resistant Organisms: None Reported Past Surgical History: Adenoidectomy, Appendectomy, Cholecystectomy, Orthopedic Surgery, Tonsillectomy Additional Past Surgical History / Comment(s): orif lt leg has plate and screws, bilateral cataracts removed with lens and bilateral eye stented d/t glaucoma Past Anesthesia/Blood Transfusion Reactions: No Reported Reaction Past Psychological History: No Psychological Hx Reported Additional Psychological History / Comment(s): Pt resides with spouse. She uses a cane and at night a walker. She works in real estate. Smoking Status: Never smoker Past Alcohol Use History: None Reported Past Drug Use History: None Reported - Past Family History Father History Unknown: Yes Family Medical History: Diabetes Mellitus, Vascular Disorder Additional Family Medical History / Comment(s): Several abdominal aortic aneurysms, kidney stones, Mother History Unknown: Yes Family Medical History: Cancer, Hyperlipidemia Additional Family Medical History / Comment(s): Mother of ovarian cancer at the age of 72 yrs. She also had rheumatic fever/heart valve issue. Medications and Allergies Home Medications Medication Instructions Recorded Confirmed Type Furosemide [Lasix] 40 mg PO DAILY #30 tab 03/03/15 06/11/20 Rx Colchicine 1.2 mg PO DIRECTED 12/23/17 06/11/20 History Albuterol Inhaler [Ventolin Hfa 1 - 2 puff INHALATION RT-Q6H PRN 06/11/20 06/11/20 History Inhaler] Cetirizine HCl [Zyrtec] 10 mg PO DAILY 06/11/20 06/11/20 History Cholecalciferol [Vitamin D3 (25 250 mcg PO DAILY 06/11/20 06/11/20 History Mcg = 1000 Iu)] Meloxicam [Mobic] 15 mg PO DAILY 06/11/20 06/11/20 History Spironolactone [Aldactone] 25 mg PO DAILY 06/11/20 06/11/20 History Vitamin C W/ Zinc 1 tab PO DAILY 06/11/20 06/11/20 History Zinc 50 mg PO DAILY 06/11/20 06/11/20 History Allergies Allergy/AdvReac Type Severity Reaction Status Date / Time Tetracyclines Allergy Rash/Hives Verified 06/11/20 19:08 Physical Exam Vitals: Vital Signs Temp Pulse Pulse Resp BP BP Pulse Ox 06/12/20 10:00 98.7 F 82 16 125/78 94 L 06/12/20 08:12 96 06/12/20 05:45 98.3 F 76 18 138/81 96 06/12/20 02:00 98.3 F 81 22 115/65 95 06/11/20 20:14 100.4 F H 95 20 149/80 91 L 06/11/20 19:55 7 L 06/11/20 19:00 96 7 L 94 L 06/11/20 18:30 98 18 96 06/11/20 18:00 96 40 H 96 06/11/20 17:30 98 12 96 06/11/20 17:00 96 25 H 149/79 96 06/11/20 16:43 85 L 06/11/20 16:30 96 26 H 144/81 100 06/11/20 16:18 93 22 144/81 98 06/11/20 16:14 97 Intake and Output 06/11/20 06/12/20 06/12/20 22:59 06:59 14:59 Other: Voiding Method Toilet Diaper # Voids 2 3 Weight 176.901 kg General appearance: alert, in no apparent distress, obese Head exam: Present: atraumatic, normocephalic, normal inspection Eye exam: Present: normal appearance, PERRL, EOMI. Absent: scleral icterus, conjunctival injection, periorbital swelling ENT exam: Present: normal exam, mucous membranes moist Neck exam: Present: normal inspection. Absent: tenderness, meningismus, lymphadenopathy Respiratory exam: Present: Diminished breath sounds bilaterally and the patient has some limited crackers in the lung bases and in the mid lung pan bilater ally. Absent: respiratory distress, wheezes, rales, rhonchi, stridor Cardiovascular Exam: Present: regular rate, normal rhythm, normal heart sounds. Absent: systolic murmur, diastolic murmur, rubs, gallop, clicks GI/Abdominal exam: Present: soft, normal bowel sounds. Absent: distended, tenderness, guarding, rebound, rigid Extremities exam: Present: normal inspection, full ROM, normal capillary refill. Absent: tenderness, pedal edema, joint swelling, calf tenderness Back exam: Present: normal inspection Neurological exam: Present: alert, oriented X3, CN II-XII intact Psychiatric exam: Present: normal affect, normal mood Skin exam: Present: warm, dry, intact, normal color. Absent: rash Results - Laboratory Findings CBC and BMP: 06/11/20 17:10 06/11/20 17:10 PT/INR, D-dimer PT 10.4 sec (9.0-12.0) 06/11/20 17:10 INR 1.0 (<1.2) 06/11/20 17:10 Abnormal lab findings: Abnormal Labs 06/11/20 06/11/20 06/11/20 17:10 17:10 17:10 RDW 16.3 H Lymphocytes # (Manual) 0.76 L Metamyelocytes # (Man) 0.16 H Chloride 94 L Carbon Dioxide 35 H Glucose 108 H Ferritin 322.9 H AST 55 H ALT 48 H Lactate Dehydrogenase 808 H C-Reactive Protein 218.9 H Procalcitonin 0.18 H Coronavirus (PCR) 06/11/20 17:46 RDW Lymphocytes # (Manual) Metamyelocytes # (Man) Chloride Carbon Dioxide Glucose Ferritin AST ALT Lactate Dehydrogenase C-Reactive Protein Procalcitonin Coronavirus (PCR) Detected A - Diagnostic Findings Chest x-ray: image reviewed Assessment and Plan Plan: 1 acute Covid 19 related pneumonia with secondary shortness of breath. The patient has been symptomatic less than a week ago. The patient was initially diagnosed on 06/05/2020 and the patient was given BAM monoclonal antibodies. Subsequently, condition got worse and the patient came into the hospital because of worsening shortness of breath and bilateral lower lobe pulmonary infiltrates consistent with disease progression. LDH is mildly elevated. CRP is elevated 2 acute hypoxic respiratory failure currently on 6 L of oxygen by nasal cannula on the patient also has chronic hypoxic respiratory failure and the patient is at home on oxygen at 1.5 L. 3 fever secondary to above and is in combination with other constitutional symptoms 4 lymphopenia 5 history of congestion heart failure 6 obesity with a BMI being elevated and the patient currently weighs 176 kg, current BMI 61.1. 7 obstructive sleep apnea him a the patient had a CPAP machine at home. 8 chronic right elevated hemidiaphragm 9 osteoarthritis 10 gout 11glucoma 12 Compression fracture of the T11 spine along with lumbar degenerative disc disease Plan We'll treat this patient with oxygen and will titrate the flow to maintain s aturation above 90% Decadron 6 mg IV push every 24 hours Lovenox 40 mg subcu for DVT prophylaxis Obtain baseline d-dimer levels and adjust anticoagulation dose accordingly Patient will be an adequate candidate for REMDESIVIR and this will be started for protocol, and the patient is currently on day #2. Wean down the FiO2 and currently she is being down to 5 L Resume home medications
[2020-06-12] MEDS: SODIUM CHLORIDE 0.9% 1,000 ML IV SCH (15:30)
[2020-06-12] MEDS: REMDESIVIR 100 MG in SODIUM CHLORIDE 0.9% 250 ML IVPB SCH (20:33)
[2020-06-12] MEDS: ACETAMINOPHEN TAB 500 MG TAB PO PRN (20:34)
[2020-06-13 07:35] LABS: Basophils % (A) 0 %; Eosinophils % (A) 0 %; HCT 39.9 % (34.0-46.0); HGB 13.4 gm/dL (11.4-16.0); Lymphocytes # (A) 1.2 k/uL (1.0-4.8); Lymphocytes % (A) 17 %; MCH 28.5 pg (25.0-35.0); MCHC 33.5 g/dL (31.0-37.0); MCV 85.2 fL (80.0-100.0); Mean Platelet Volume 6.6; Monocytes # (A) 0.5 k/uL (0-1.0); Monocytes % (A) 7 %; Neutrophils # (A) 4.9 k/uL (1.3-7.7); Neutrophils % (A) 74 %; Platelet Count 464 k/uL (150-450); RBC 4.69 m/uL (3.80-5.40); RDW 15.8 % (11.5-15.5); WBC 6.7 k/uL (3.8-10.6)
[2020-06-13 07:46] LABS: ALT 47 U/L (4-34); AST 65 U/L (14-36); African American GFR (CKD) >90 (>60 ml/min/1.73 sqM); Albumin 3.5 g/dL (3.5-5.0); Albumin/Globulin Ratio 1.3; Alkaline Phosphatase 91 U/L (38-126); Anion Gap 7 mmol/L; Blood Urea Nitrogen 18 mg/dL (7-17); Calcium 8.8 mg/dL (8.4-10.2); Carbon Dioxide 31 mmol/L (22-30); Chloride 101 mmol/L (98-107); Globulin 2.8 g/dL; Glucose 99 mg/dL (74-99); LDH 1073 U/L (313-618); Non-African American GFR(CKD) >90 (>60 ml/min/1.73 sqM); Potassium 3.9 mmol/L (3.5-5.1); Sodium 139 mmol/L (137-145); Total Bilirubin 0.4 mg/dL (0.2-1.3); Total Protein 6.3 g/dL (6.3-8.2)
[2020-06-13] MEDS: LORATADINE 10 MG TAB PO SCH (07:53)
[2020-06-13] MEDS: BENZONATATE 100 MG CAP PO SCH ×3 (07:53→20:11)
[2020-06-13] MEDS: ENOXAPARIN 40 MG/0.4 ML SYRINGE SQ SCH (07:53)
[2020-06-13] MEDS: SPIRONOLACTONE 25 MG TAB PO SCH (07:53)
[2020-06-13] MEDS: ZINC SULFATE 220 MG CAP PO SCH (07:53)
[2020-06-13] MEDS: CHOLECALCIFEROL 25 MCG (1000 IU) TABLET PO SCH (07:54)
[2020-06-13] MEDS: ASCORBIC ACID 500 MG TAB PO SCH ×2 (07:54→20:11)
[2020-06-13] MEDS: FUROSEMIDE 40 MG TAB PO SCH (07:54)
[2020-06-13] MEDS: DEXAMETHASONE SOD PHOSPHATE 10 MG/ML 1 ML VIAL IV SCH (07:54)
[2020-06-13 08:02] LABS: C Reactive Protein 124.9 mg/L (<10.0)
--- NOTE | 2020-06-13 08:15 | P.PN ---
Subjective Progress Note Date: 06/13/20 Principal diagnosis: Covid 19 infection Dyspnea Generalized malaise 59-year-old female with significant history of congestive heart failure, obstructive sleep apnea syndrome on CPAP, fibromyalgia, osteoarthritis, gout, glaucoma, and history of compression fracture of T11. Patient was admitted to the hospital for covid- 19 pneumonia infection, patient received Bam monoclonal antibodies on 06/05/2020 patient was admitted to the hospital due to worsening shortness of breath and generalized weakness. Patient was started on Decadron, Lovenox, vitamin C, vitamin D, zinc, and REmdesivir for Covid 19 pneumonia upon evaluation this a.m. patient decrease shortness of breath and able to move extremities with decreased effort. Patient continues to endorse shortness of breath at rest and exertion, generalized malaise, and generalized weakness. Objective - Vital Signs Vital signs: Vital Signs Temp 98.3 F 06/13/20 05:23 Pulse 79 06/13/20 05:23 Resp 18 06/13/20 05:23 BP 117/74 06/13/20 05:23 Pulse Ox 95 06/13/20 05:23 Intake & Output 06/12/20 06/13/20 06/13/20 18:59 06:59 18:59 Intake Total 300 Balance 300 Intake: Oral 300 Other: Voiding Method Toilet Diaper # Voids 3 2 - Constitutional General appearance: Present: mild distress - EENT Eyes: Present: EOMI, PERRLA Ears: bilateral: normal - Neck Neck: Present: normal ROM Carotids: bilateral: upstroke normal Thyroid: bilateral: normal size - Respiratory Respiratory: bilateral: diminished (Anterior and posterior lung pan) - Cardiovascular Details: Normal sinus rhythm Heart rate: 74 Rhythm: regular Heart sounds: normal: S1, S2 - Peripheral edema ankle Peripheral Edema: bilateral: 1+ foot Peripheral Edema: bilateral: 1+ leg Peripheral Edema: bilateral: 1+ - Peripheral pulses radial pulse Peripheral Pulses: bilateral: Normal femoral Peripheral Pulses: bilateral: Normal - Gastrointestinal General gastrointestinal: Present: normal bowel sounds - Integumentary Integumentary: Present: pale - Neurologic Neurologic: Present: CNII-XII intact - Musculoskeletal Musculoskeletal: Present: generalized weakness - Psychiatric Psychiatric: Present: A&O x's 3, appropriate affect, intact judgment & insight - Allied health notes Allied health notes reviewed: nursing - Labs CBC & Chem 7: 06/13/20 07:08 06/13/20 07:08 Labs: Abnormal Lab Results - Last 24 Hours (Table) 06/12/20 06/13/20 06/13/20 Range/Units 12:58 07:08 07:08 RDW 15.8 H (11.5-15.5) % Plt Count 464 H (150-450) k/uL D-Dimer 0.85 H (<0.60) mg/L FEU Carbon Dioxide 31 H (22-30) mmol/L BUN 18 H (7-17) mg/dL Creatinine 0.51 L (0.52-1.04) mg/dL AST 65 H (14-36) U/L ALT 47 H (4-34) U/L Lactate Dehydrogenase 1073 H (313-618) U/L C-Reactive Protein 124.9 H (<10.0) mg/L Microbiology - Last 24 Hours (Table) 06/11/20 17:10 Blood Culture - Preliminary Blood No Growth after 24 hours Assessment and Plan Assessment: Covid 19 infection acute hypoxic respiratory failure Crohn's disease heart failure unspecified obstructive sleep apnea with CPAP degenerative disc disease morbid obesity Gout Fibromyalgia Osteoarthritis Chronic right elevated hemidiaphragm Full code Plan: Covid 19 pneumonia continue IV Decadron, vitamin supplements, and consultation with pulmonary critical care for recommendations and treatment plan acute hypoxic failure continue oxygen therapy to keep oxygen saturation's greater than 90%, encouraged incentive spirometer 10 times per hour Continue to monitor diagnostic labs and vital signs continue home medications continue medical management further recommendations to come based on patient's clinical condition Time with Patient: Greater than 30
[2020-06-13] MEDS: ALBUTEROL HFA INHALER INHALATION SCH ×3 (09:00→22:28)
--- NOTE | 2020-06-13 09:35 | XR ---
EXAMINATION TYPE: XR chest 1V portable DATE OF EXAM: 06/13/2020 COMPARISON: Chest x-ray 06/11/2020 HISTORY: Shortness of breath TECHNIQUE: Single frontal view of the chest is obtained. FINDINGS: Bilateral airspace disease is again seen, there is persistent elevation of right hemidiaph ragm. Heart is thought likely to be enlarged. No evident pneumothorax. Left hemidiaphragm partially o bscured. Degenerative disc changes are present in the visualized spine, there is calcification within the aorta. IMPRESSION: Correlate for pneumonia, edema
--- NOTE | 2020-06-13 15:21 | P.PN ---
Subjective Progress Note Date: 06/13/20 Principal diagnosis: Dyspnea, COVID-19 pneumonia 59-year-old female patient, obese, with known history of congestion heart failure, initially presented emergency department on 06/06/2020 for headache and low-grade fever and she denied back then having any chest pain or shortness of breath. No gastrointestinal symptoms. The patient was positive covid 19 and the patient was given monoclonal antibody with BAM infusion. The patient tolerated the infusion well and the patient was discharged home. The patient came back to the emergency department on 06/11/2020 with difficulty in breathing. The patient had increased cough and her symptoms are getting worse and the patient was complaining of some shortness of breath. No nausea. No vomiting. No diarrhea. No change in taste or smell. She was quite fatigued and she had diminished appetite. The patient was found to be hypoxemic and the patient was placed on oxygen for a pulse ox of 85% and currently the patient is on 6 L of Oxymizer nasal cannula. White cell count is normal at 5.4 with a hemoglobin of 13, the patient does have lymphopenia, coagulation profile is within normal limits, the BUN is at 11 with a creatinine of 0.6, LFTs show mild transaminitis with an AST of 55, ALT of 44, LDH level is at 808 with a CRP of 218. The chest x-ray showing smaller lung volumes and extensive perihilar and lower lobe pulmonary infiltrates bilateral. The patient is already started on Decadron 6 mg IV every 24 hours. The patient will also on Lovenox 40 mg subcu every 24 hours. The patient is receiving her outpatient medications and she'll be admitted to the floor. On 06/13/2020 patient seen in follow-up on medical floor, currently on 5 L of oxygen her pulse ox is 96%, she is afebrile, vital signs have been stable, today is day 3 of Remdesivir, worsening dyspnea, today's chest x-ray shows bilateral airspace disease with persistent elevation of the right hemidiaphragm. Today's labs have been noted, d-dimer is 0.67, CO2 is 21, BUN is 18, creatinine 0.51, LDH today has increased and is at 1073, CRP is coming down, don't 124.9 on today's labs, pro-calcitonin level is low at 0.18. No acute events overnight. Patient continues on Decadron 6 mg daily, Tessalon Perles, and prophylactic dose Lovenox. Objective - Vital Signs Vital signs: Vital Signs Temp 98.1 F 06/13/20 14:00 Pulse 94 06/13/20 14:00 Resp 23 06/13/20 14:00 BP 138/70 06/13/20 14:00 Pulse Ox 96 06/13/20 14:00 Intake & Output 06/12/20 06/13/20 06/13/20 18:59 06:59 18:59 Intake Total 300 410 Balance 300 410 Intake: IV 410 Remdesivir 100 mg In 250 Sodium Chloride 0.9% 250 ml @ 250 mls/hr IVPB DAILY@2200 [facility] Rx#: [id number] Sodium Chloride 0.9% 1, 160 000 ml @ 20 mls/hr IV . Q24H [facility] Rx#:[id number] Oral 300 Other: Voiding Method Toilet Diaper # Voids 3 2 - Exam GENERAL EXAM: Alert, very pleasant, 51-year-old white female, on 5 L of oxygen with pulse ox of 96%, comfortable in no apparent distress. HEAD: Normocephalic/atraumatic. EYES: Normal reaction of pupils, equal size. Conjunctiva pink, sclera white. NOSE: Clear with pink turbinates. THROAT: No erythema or exudates. NECK: No masses, no JVD, no thyroid enlargement, no adenopathy. CHEST: No chest wall deformity. Symmetrical expansion. LUNGS: Equal air entry with bibasilar crackles CVS: Regular rate and rhythm, normal S1 and S2, no gallops, no murmurs, no rubs ABDOMEN: Soft, nontender. No hepatosplenomegaly, normal bowel sounds, no guarding or rigidity. EXTREMITIES: No clubbing, no edema, no cyanosis, 2+ pulses and upper and lower extremities. MUSCULOSKELETAL: Muscle strength and tone normal. SPINE: No scoliosis or deformity SKIN: No rashes CENTRAL NERVOUS SYSTEM: Alert and oriented -3. No focal deficits, tone is normal in all 4 extremities. PSYCHIATRIC: Alert and oriented -3. Appropriate affect. Intact judgment and insight. - Labs CBC & Chem 7: 06/13/20 07:08 06/13/20 07:08 Labs: Abnormal Lab Results - Last 24 Hours (Table) 04/06/13/20 06/13/20 Range/Units 07:08 07:08 07:08 RDW 15.8 H (11.5-15.5) % Plt Count 464 H (150-450) k/uL D-Dimer 0.67 H (<0.60) mg/L FEU Carbon Dioxide 31 H (22-30) mmol/L BUN 18 H (7-17) mg/dL Creatinine 0.51 L (0.52-1.04) mg/dL AST 65 H (14-36) U/L ALT 47 H (4-34) U/L Lactate Dehydrogenase 1073 H (313-618) U/L C-Reactive Protein 124.9 H (<10.0) mg/L Microbiology - Last 24 Hours (Table) 06/11/20 17:10 Blood Culture - Preliminary Blood No Growth after 24 hours Assessment and Plan Plan: Assessment: 1 acute Covid 19 related pneumonia with secondary shortness of breath. The patient has been symptomatic less than a week ago. The patient was initially diagnosed on 06/05/2020 and the patient was given BAM monoclonal antibodies. Subsequently, condition got worse and the patient came into the hospital because of worsening shortness of breath and bilateral lower lobe pulmonary infiltrates consistent with disease progression. LDH is mildly elevated. CRP is elevated, started on Remdesivir on 06/11/2020 2 acute hypoxic respiratory failure currently on 6 L of oxygen by nasal cannula on the patient also has chronic hypoxic respiratory failure and the patient is at home on oxygen at 1.5 L. 3 fever secondary to above and is in combination with other constitutional symptoms 4 lymphopenia 5 history of congestion heart failure 6 obesity with a BMI being elevated and the patient currently weighs 176 kg, current BMI 61.1. 7 obstructive sleep apnea him a the patient had a CPAP machine at home. 8 chronic right elevated hemidiaphragm 9 osteoarthritis 10 gout 11glucoma 12 Compression fracture of the T11 spine along with lumbar degenerative disc disease Plan: Today's labs have been noted, chest x-ray has been reviewed, wean FiO2 to keep O2 sat at 89-90%, long as the patient is asymptomatic and breathing comfortably, continue Remdesivir, today's day 3 of treatment, continue steroids, prophylactic anticoagulation, we'll obtain follow-up inflammatory markers and chest x-ray in 48 hours unless there is worsening in her dyspnea hypoxia I performed a history & physical examination of the patient and discussed their management with my nurse practitioner, Cara Martin. I reviewed the nurse practitioner's note and agree with the documented findings and plan of care. Lung sounds are positive for bibasilar crackles. The findings and the impression was discussed with the patient. I attest to the documentation by the nurse practitioner. Time with Patient: Less than 30
[2020-06-13] MEDS: SODIUM CHLORIDE 0.9% 1,000 ML IV SCH (16:47)
--- NOTE | 2020-06-13 17:51 | CDI ---
Documentation Clarification Form Date: 06/13/2020 05:35:28 PM From: Shirlene Kruse RN, CCDS Admit Date: 06/11/2020 06:38:00 PM Patient Name: Zoe Sy Visit Number: [id number] Discharge Date: ATTENTION: The Clinical Documentation Specialists (CDI) and [facility] Coding Staff appreciate your assistance in clarifying documentation. Please respond to the clarification below the line at the bottom and electronically sign. The CDI & [facility] Coding staff will review the response and follow-up if needed. Please note: Queries are made part of the Legal Health Record. If you have any questions, please contact the author of this message via ITS. Dr. Vipin Villafana Your patient has the documented diagnosis of unspecified CHF in the H/P ON 06/12 and subsequent documentation. Additional information regarding the type, acuity] of CHF is requested. History/Risk Factors: Heart Failure, Pneumonia, Crohn's disease, Morbid obesity Clinical Indicators: 59-year-old female present on 06/11 to ED with difficulty in breathing for one week duration and was diagnosed with Covid 19 infection. 06/11 Extremities exam: no pedal edema 06/11 CXR: There is new pulmonary edema compared to old exam that could be acute heart failure or developing RDS. There is chronic elevation of the right diaphragm with atelectasis right lung base. 06/11 at 16:18: 144/81 93 22 98 % Non-rebreather on 15 Liters 06/11 BNP: 183 Echocardiogram Results: Last reported ECDHO 02/28/15 mild centric left ventricular hypertrophy overall ventricular systolic function is normal with, an ED between 60-65 % Treatment: Lasix 40 MG PO Daily Aldactone 25 MG PO Daily Monitor I/O In your professional opinion, can you please clarify the [acuity and type] of CHF if known? [ ] Chronic Diastolic Heart Failure (preserved EF) [ ] Acute on Chronic Diastolic Heart Failure (preserved EF) [ ] Other, please specify [ ] Unable to determine (Template Last Revised: April 2020) Physician clarification Congestive heart failure unspecified MTDD
[2020-06-13] MEDS ORDERED: TEMAZEPAM 15 MG CAP PO PRN (18:29)
[2020-06-13] MEDS: REMDESIVIR 100 MG in SODIUM CHLORIDE 0.9% 250 ML IVPB SCH (20:11)
[2020-06-13] MEDS: ACETAMINOPHEN TAB 500 MG TAB PO PRN (20:11)
[2020-06-14] MEDS: ALBUTEROL HFA INHALER INHALATION SCH ×3 (07:45→20:35)
[2020-06-14] MEDS: ASCORBIC ACID 500 MG TAB PO SCH ×2 (07:50→22:22)
[2020-06-14] MEDS: BENZONATATE 100 MG CAP PO SCH ×3 (07:50→22:22)
[2020-06-14] MEDS: FUROSEMIDE 40 MG TAB PO SCH (07:50)
[2020-06-14] MEDS: SPIRONOLACTONE 25 MG TAB PO SCH (07:50)
[2020-06-14] MEDS: LORATADINE 10 MG TAB PO SCH (07:50)
[2020-06-14] MEDS: DEXAMETHASONE SOD PHOSPHATE 10 MG/ML 1 ML VIAL IV SCH (07:50)
[2020-06-14] MEDS: CHOLECALCIFEROL 25 MCG (1000 IU) TABLET PO SCH (07:50)
[2020-06-14] MEDS: ENOXAPARIN 40 MG/0.4 ML SYRINGE SQ SCH (07:50)
[2020-06-14] MEDS: ZINC SULFATE 220 MG CAP PO SCH (07:50)
--- NOTE | 2020-06-14 08:28 | P.PN ---
Subjective Progress Note Date: 06/14/20 Principal diagnosis: Covid 19 infection Dyspnea Generalized malaise 59-year-old female with significant history of congestive heart failure, obstructive sleep apnea syndrome on CPAP, fibromyalgia, osteoarthritis, gout, glaucoma, and history of compression fracture of T11. Patient was admitted to the hospital for covid- 19 pneumonia infection, patient received Bam monoclonal antibodies on 06/05/2020 patient was admitted to the hospital due to worsening shortness of breath and generalized weakness. Patient was started on Decadron, Lovenox, vitamin C, vitamin D, zinc, and REmdesivir for Covid 19 pneumonia upon evaluation this a.m. patient decrease shortness of breath and able to move extremities with decreased effort. Patient continues to endorse shortness of breath at rest and exertion, generalized malaise, and generalized weakness. 06/14/2020 Evaluated 59-year-old female this a.m., resting comfortably in bed with supplemental oxygen of 4 L to keep oxygen saturations greater than 90% patient continues to receive Decadron, Lovenox, vitamin C, vitamin D, zinc, and remdesivir for Covid 19 pneumonia. Patient continues to endorse chills, shortness of breath, shortness of breath with exertion, generalized malaise and generalized fatigue. Patient's breathing is less labored this a.m. able to speak full sentences patient denies fever, chest pain, palpitations, abdominal pain, nausea, vomiting or diarrhea at this time. Objective - Vital Signs Vital signs: Vital Signs Temp 98.2 F 06/14/20 05:52 Pulse 79 06/14/20 05:52 Resp 18 06/14/20 05:52 BP 124/69 06/14/20 05:52 Pulse Ox 96 06/14/20 05:52 Intake & Output 06/13/20 06/14/20 06/14/20 18:59 06:59 18:59 Intake Total 410 850 Balance 410 850 Intake: IV 410 250 Remdesivir 100 mg In 250 250 Sodium Chloride 0.9% 250 ml @ 250 mls/hr IVPB DAILY@2200 [facility] Rx#: [id number] Sodium Chloride 0.9% 1, 160 000 ml @ 20 mls/hr IV . Q24H [facility] Rx#:[id number] Oral 600 Other: Voiding Method Toilet Diaper # Voids 2 - Constitutional General appearance: Present: mild distress - EENT Eyes: Present: EOMI, PERRLA Ears: bilateral: normal - Neck Neck: Present: normal ROM Carotids: bilateral: upstroke normal Thyroid: bilateral: normal size - Respiratory Respiratory: bilateral: diminished (Anterior and posterior lung pan) - Cardiovascular Details: Normal sinus rhythm Heart rate: 78 Rhythm: regular Heart sounds: normal: S1, S2 - Peripheral edema leg Peripheral Edema: bilateral: 2+, 3+ ankle Peripheral Edema: bilateral: 2+ foot Peripheral Edema: bilateral: 2+ - Peripheral pulses radial pulse Peripheral Pulses: bilateral: Normal femoral Peripheral Pulses: bilateral: Diminished - Gastrointestinal General gastrointestinal: Present: normal bowel sounds - Integumentary Integumentary: Present: pale - Neurologic Neurologic: Present: CNII-XII intact - Musculoskeletal Musculoskeletal: Present: generalized weakness - Psychiatric Psychiatric: Present: A&O x's 3, appropriate affect, intact judgment & insight - Allied health notes Allied health notes reviewed: nursing - Labs CBC & Chem 7: 06/13/20 07:08 06/13/20 07:08 Labs: Microbiology - Last 24 Hours (Table) 06/11/20 17:10 Blood Culture - Preliminary Blood No Growth after 48 hours Assessment and Plan Assessment: Covid 19 infection acute hypoxic respiratory failure Crohn's disease heart failure unspecified obstructive sleep apnea with CPAP degenerative disc disease morbid obesity Gout Fibromyalgia Osteoarthritis Chronic right elevated hemidiaphragm Full code Plan: Covid 19 pneumonia continue IV Decadron, remdesivir, vitamin supplements, and consultation with pulmonary critical care for recommendations and treatment plan acute hypoxic failure continue oxygen therapy to keep oxygen saturation's greater than 90%, encouraged incentive spirometer 10 times per hour Continue to monitor diagnostic labs and vital signs continue home medications continue medical management further recommendations to come based on patient's clinical condition Time with Patient: Greater than 30
[2020-06-14 09:01] LABS: Basophils # (A) 0.1 k/uL (0-0.2); Basophils % (A) 1 %; Eosinophils % (A) 1 %; HCT 39.8 % (34.0-46.0); HGB 13.1 gm/dL (11.4-16.0); Lymphocytes # (A) 1.2 k/uL (1.0-4.8); Lymphocytes % (A) 22 %; MCH 28.2 pg (25.0-35.0); MCHC 32.9 g/dL (31.0-37.0); MCV 85.9 fL (80.0-100.0); Mean Platelet Volume 6.7; Monocytes # (A) 0.4 k/uL (0-1.0); Monocytes % (A) 7 %; Neutrophils # (A) 3.6 k/uL (1.3-7.7); Neutrophils % (A) 68 %; Platelet Count 478 k/uL (150-450); RBC 4.64 m/uL (3.80-5.40); RDW 15.9 % (11.5-15.5); WBC 5.2 k/uL (3.8-10.6)
[2020-06-14 09:19] LABS: ALT 109 U/L (4-34); AST 94 U/L (14-36); African American GFR (CKD) >90 (>60 ml/min/1.73 sqM); Albumin 3.2 g/dL (3.5-5.0); Albumin/Globulin Ratio 1.2; Alkaline Phosphatase 88 U/L (38-126); Anion Gap 7 mmol/L; Blood Urea Nitrogen 19 mg/dL (7-17); Calcium 8.6 mg/dL (8.4-10.2); Carbon Dioxide 35 mmol/L (22-30); Chloride 99 mmol/L (98-107); Globulin 2.6 g/dL; Glucose 115 mg/dL (74-99); LDH 864 U/L (313-618); Magnesium 1.4 mg/dL (1.6-2.3); Non-African American GFR(CKD) >90 (>60 ml/min/1.73 sqM); Potassium 3.6 mmol/L (3.5-5.1); Sodium 141 mmol/L (137-145); Total Bilirubin 0.4 mg/dL (0.2-1.3); Total Protein 5.8 g/dL (6.3-8.2)
--- NOTE | 2020-06-14 13:01 | P.PN ---
Subjective Progress Note Date: 06/14/20 06/14/2020 seeing the patient for a follow-up H is doing great. She is down to 2 L of oxygen by nasal cannula. She is still completing the treatment with Remdesivir today day #4. Inflammatory markers are also improving. LDH level is at 864, CRP that 58 and the patient's has a d-dimer of 0.67. No new complaints. Using incentive spirometer. No fever. No chills. No side effects of the treatment. She is currently on Lovenox. Prophylaxis 40 mg subcu on a daily basis. Objective - Vital Signs Vital signs: Vital Signs Temp 98.1 F 06/14/20 10:00 Pulse 91 06/14/20 10:00 Resp 22 06/14/20 10:00 BP 124/73 06/14/20 10:00 Pulse Ox 93 L 06/14/20 10:00 Intake & Output 06/13/20 06/14/20 06/14/20 18:59 06:59 18:59 Intake Total 410 850 200 Balance 410 850 200 Intake: IV 410 250 Remdesivir 100 mg In 250 250 Sodium Chloride 0.9% 250 ml @ 250 mls/hr IVPB DAILY@2200 [facility] Rx#: [id number] Sodium Chloride 0.9% 1, 160 000 ml @ 20 mls/hr IV . Q24H [facility] Rx#:[id number] Oral 600 200 Other: Voiding Method Toilet Diaper # Voids 2 - Exam GENERAL EXAM: Alert, very pleasant, 51-year-old white female, on 2 L of oxygen with pulse ox of 96%, comfortable in no apparent distress. HEAD: Normocephalic/atraumatic. EYES: Normal reaction of pupils, equal size. Conjunctiva pink, sclera white. NOSE: Clear with pink turbinates. THROAT: No erythema or exudates. NECK: No masses, no JVD, no thyroid enlargement, no adenopathy. CHEST: No chest wall deformity. Symmetrical expansion. LUNGS: Equal air entry with bibasilar crackles CVS: Regular rate and rhythm, normal S1 and S2, no gallops, no murmurs, no rubs ABDOMEN: Soft, nontender. No hepatosplenomegaly, normal bowel sounds, no guarding or rigidity. EXTREMITIES: No clubbing, no edema, no cyanosis, 2+ pulses and upper and lower extremities. MUSCULOSKELETAL: Muscle strength and tone normal. SPINE: No scoliosis or deformity SKIN: No rashes CENTRAL NERVOUS SYSTEM: Alert and oriented -3. No focal deficits, tone is normal in all 4 extremities. PSYCHIATRIC: Alert and oriented -3. Appropriate affect. Intact judgment and insight. - Labs CBC & Chem 7: 06/14/20 07:50 06/14/20 07:50 Labs: Abnormal Lab Results - Last 24 Hours (Table) 06/14/20 06/14/20 Range/Units 07:50 07:50 RDW 15.9 H (11.5-15.5) % Plt Count 478 H (150-450) k/uL Carbon Dioxide 35 H (22-30) mmol/L BUN 19 H (7-17) mg/dL Glucose 115 H (74-99) mg/dL Magnesium 1.4 L (1.6-2.3) mg/dL AST 94 H (14-36) U/L ALT 109 H (4-34) U/L Lactate Dehydrogenase 864 H (313-618) U/L C-Reactive Protein 58.0 H (<10.0) mg/L Total Protein 5.8 L (6.3-8.2) g/dL Albumin 3.2 L (3.5-5.0) g/dL Microbiology - Last 24 Hours (Table) 06/11/20 17:10 Blood Culture - Preliminary Blood No Growth after 48 hours Assessment and Plan Plan: 1 acute Covid 19 related pneumonia with secondary shortness of breath. The patient has been symptomatic less than a week ago. The patient was initially diagnosed on 06/05/2020 and the patient was given BAM monoclonal antibodies. Subsequently, condition got worse and the patient came into the hospital because of worsening shortness of breath and bilateral lower lobe pulmonary infiltrates consistent with disease progression. LDH is mildly elevated. CRP is elevated, started on Remdesivir on 06/11/2020 2 acute hypoxic respiratory failure currently on 6 L of oxygen by nasal cannula on the patient also has chronic hypoxic respiratory failure and the patient is at home on oxygen at 1.5 L. 3 fever secondary to above and is in combination with other constitutional symptoms 4 lymphopenia 5 history of congestion heart failure 6 obesity with a BMI being elevated and the patient currently weighs 176 kg, current BMI 61.1. 7 obstructive sleep apnea him a the patient had a CPAP machine at home. 8 chronic right elevated hemidiaphragm 9 osteoarthritis 10 gout 11glucoma 12 Compression fracture of the T11 spine along with lumbar degenerative disc disease Plan: Improving clinically On 2 L about 2 by nasal cannula She is jonel #4 of Remdesivir May possibly get discharged home after completing her treatment on Decadron to complete a total of 10 day course of admission. Also, consider Xarelto at a time of discharge at a dose of 10 mg for the next 30 days.
[2020-06-14 22:20] LABS: Ferritin 337.5 ng/mL (10.0-291.0)
[2020-06-14] MEDS: REMDESIVIR 100 MG in SODIUM CHLORIDE 0.9% 250 ML IVPB SCH (22:22)
[2020-06-15] MEDS: ALBUTEROL HFA INHALER INHALATION SCH ×2 (07:21→12:12)
--- NOTE | 2020-06-15 07:51 | XR ---
EXAMINATION TYPE: XR chest 1V portable DATE OF EXAM: 06/15/2020 Comparison: 06/13/2020 Clinical History: 59 year-old female shortness of breath Findings: Low lung volumes. Heart mildly enlarged. Bilateral patchy and interstitial opacities slightly improve d from prior. No pleural effusion. Impression: Hypoventilatory changes. Interstitial and patchy bilateral opacities show some improvement from prior .
[2020-06-15] MEDS: ENOXAPARIN 40 MG/0.4 ML SYRINGE SQ SCH (08:21)
[2020-06-15] MEDS: DEXAMETHASONE SOD PHOSPHATE 10 MG/ML 1 ML VIAL IV SCH (08:21)
[2020-06-15] MEDS: BENZONATATE 100 MG CAP PO SCH (08:22)
[2020-06-15] MEDS: LORATADINE 10 MG TAB PO SCH (08:22)
[2020-06-15] MEDS: CHOLECALCIFEROL 25 MCG (1000 IU) TABLET PO SCH (08:22)
[2020-06-15] MEDS: ASCORBIC ACID 500 MG TAB PO SCH (08:22)
[2020-06-15] MEDS: SPIRONOLACTONE 25 MG TAB PO SCH (08:22)
[2020-06-15] MEDS: ZINC SULFATE 220 MG CAP PO SCH (08:22)
[2020-06-15] MEDS: FUROSEMIDE 40 MG TAB PO SCH (08:22)
[2020-06-15 09:54] LABS: Basophils % (A) 1 %; Eosinophils # (A) 0.1 k/uL (0-0.7); Eosinophils % (A) 1 %; HCT 40.8 % (34.0-46.0); HGB 13.2 gm/dL (11.4-16.0); Lymphocytes # (A) 1.4 k/uL (1.0-4.8); Lymphocytes % (A) 25 %; MCH 27.7 pg (25.0-35.0); MCHC 32.4 g/dL (31.0-37.0); MCV 85.5 fL (80.0-100.0); Mean Platelet Volume 6.8; Monocytes # (A) 0.3 k/uL (0-1.0); Monocytes % (A) 5 %; Neutrophils # (A) 3.6 k/uL (1.3-7.7); Neutrophils % (A) 66 %; Platelet Count 530 k/uL (150-450); RBC 4.77 m/uL (3.80-5.40); RDW 15.8 % (11.5-15.5); WBC 5.5 k/uL (3.8-10.6)
[2020-06-15 10:04] LABS: ALT 93 U/L (4-34); AST 61 U/L (14-36); African American GFR (CKD) >90 (>60 ml/min/1.73 sqM); Albumin 3.2 g/dL (3.5-5.0); Albumin/Globulin Ratio 1.2; Alkaline Phosphatase 84 U/L (38-126); Anion Gap 11 mmol/L; Blood Urea Nitrogen 21 mg/dL (7-17); Calcium 8.2 mg/dL (8.4-10.2); Carbon Dioxide 32 mmol/L (22-30); Chloride 99 mmol/L (98-107); Globulin 2.7 g/dL; Glucose 135 mg/dL (74-99); Magnesium 1.3 mg/dL (1.6-2.3); Non-African American GFR(CKD) >90 (>60 ml/min/1.73 sqM); Potassium 3.2 mmol/L (3.5-5.1); Sodium 142 mmol/L (137-145); Total Bilirubin 0.4 mg/dL (0.2-1.3); Total Protein 5.9 g/dL (6.3-8.2)
[2020-06-15 13:58] VITALS: BP 139/82; PULSE 90; RESP 19; TEMP 98
[2020-06-15] MEDS: REMDESIVIR 100 MG in SODIUM CHLORIDE 0.9% 250 ML IVPB SCH (14:08)
--- NOTE | 2020-06-15 15:33 | P.PN ---
Subjective Progress Note Date: 06/15/20 06/15/2020, I'm seeing this patient for a follow-up. I was stated the patient is doing very well. She was on 2 L of oxygen by nasal cannula and she could be potentially wean about. She has completed the treatment with Remdesivir and the patient is still on steroids. She has no specific complaints pH she remains on Lovenox for DVT prophylaxis 40 mg subcu on a daily basis. No fever. No chills. No nausea. No vomiting. The blood work essentially within normal limits. The patient is morbidly obese and she carries a body mass index of 61.1. It'll be reasonable to discharge her home on some degree of anticoagulation for DVT prophylaxis over the next 30 days. Objective - Vital Signs Vital signs: Vital Signs Temp 98.0 F 06/15/20 13:57 Pulse 90 06/15/20 13:57 Resp 19 06/15/20 13:57 BP 139/82 06/15/20 13:57 Pulse Ox 96 06/15/20 13:57 Intake & Output 06/14/20 06/15/20 06/15/20 18:59 06:59 18:59 Intake Total 200 222 Balance 200 222 Intake: Oral 200 222 Other: Voiding Method Toilet Toilet Diaper Diaper # Voids 3 1 - Exam GENERAL EXAM: Alert, very pleasant, 51-year-old white female, on 2 L of oxygen with pulse ox of 96%, comfortable in no apparent distress. HEAD: Normocephalic/atraumatic. EYES: Normal reaction of pupils, equal size. Conjunctiva pink, sclera white. NOSE: Clear with pink turbinates. THROAT: No erythema or exudates. NECK: No masses, no JVD, no thyroid enlargement, no adenopathy. CHEST: No chest wall deformity. Symmetrical expansion. LUNGS: Equal air entry with bibasilar crackles CVS: Regular rate and rhythm, normal S1 and S2, no gallops, no murmurs, no rubs ABDOMEN: Soft, nontender. No hepatosplenomegaly, normal bowel sounds, no guarding or rigidity. EXTREMITIES: No clubbing, no edema, no cyanosis, 2+ pulses and upper and lower extremities. MUSCULOSKELETAL: Muscle strength and tone normal. SPINE: No scoliosis or deformity SKIN: No rashes CENTRAL NERVOUS SYSTEM: Alert and oriented -3. No focal deficits, tone is normal in all 4 extremities. PSYCHIATRIC: Alert and oriented -3. Appropriate affect. Intact judgment and insight. - Labs CBC & Chem 7: 06/15/20 07:52 06/15/20 07:52 Labs: Abnormal Lab Results - Last 24 Hours (Table) 06/14/20 06/15/20 06/15/20 Range/Units 07:50 07:52 07:52 RDW 15.8 H (11.5-15.5) % Plt Count 530 H (150-450) k/uL Potassium 3.2 L (3.5-5.1) mmol/L Carbon Dioxide 32 H (22-30) mmol/L BUN 21 H (7-17) mg/dL Glucose 135 H (74-99) mg/dL Calcium 8.2 L (8.4-10.2) mg/dL Magnesium 1.3 L (1.6-2.3) mg/dL Ferritin 337.5 H (10.0-291.0) ng/mL AST 61 H (14-36) U/L ALT 93 H (4-34) U/L Total Protein 5.9 L (6.3-8.2) g/dL Albumin 3.2 L (3.5-5.0) g/dL Microbiology - Last 24 Hours (Table) 06/11/20 17:10 Blood Culture - Preliminary Blood No Growth after 72 hours Assessment and Plan Plan: 1 acute Covid 19 related pneumonia with secondary shortness of breath. The patient improved clinically and there is no worsening and oxygenation. The patient on Decadron and she completed a total of 5 day course of remdesivir . The patient is being considered for discharge today. 2 acute hypoxic res piratory failure currently on 6 L of oxygen by nasal cannula on the patient also has chronic hypoxic respiratory failure and the patient is at home on oxygen at 1.5 L. 3 fever secondary to above and is in combination with other constitutional symptoms 4 lymphopenia 5 history of congestion heart failure 6 obesity with a BMI being elevated and the patient currently weighs 176 kg, current BMI 61.1. 7 obstructive sleep apnea him a the patient had a CPAP machine at home. 8 chronic right elevated hemidiaphragm 9 osteoarthritis 10 gout 11glucoma 12 Compression fracture of the T11 spine along with lumbar degenerative disc disease Plan: Improving clinically On 2 L about 2 by nasal cannula Completed Remdesivir treatment today. Clear for discharge from the pulmonary standpoint to be followed up on outpatient basis. Discharge home today on Decadron to complete a total of 10 day course of admission. Also, Xarelto at a time of discharge at a dose of 10 mg for the next 30 days. Clear for discharge from the pulmonary standpoint to be followed up on outpatient basis.
--- NOTE | 2020-06-19 06:44 | P.DS ---
Providers Date of admission: 06/11/20 18:38 Expected date of discharge: 06/15/20 Attending physician: Vipin Villafana Consults: 06/11/20 18:38 Consult Physician Urgent Consulting Provider: Indu Garcia Consult Reason/Comments: dyspnea, covid Do you want consulting provider notified?: Yes Primary care physician: Vipin Villafana Hospital Course: 59-year-old female with significant medical history of congestive heart failure, obstructive sleep apnea syndrome on CPAP, fibromyalgia, osteoarthritis, gout, glaucoma, and history of compression fraction of T11. Patient was admitted to the hospital with Covid 19 pneumonia infection, patient received than monoclonal antibody on 06/05/2020. Patient was admitted on 06/11/2020 for worsening shortness of breath and generalized weakness. Patient received Decadron, Lovenox, vitamin C, vitamin D, zinc, full 5 day course of Remdesivir. Patient's inflammatory markers decreased,improvement in breathing, was able to decrease oxygen to 2 L from 6. Patient was evaluated by pulmonary critical care for recommendations and treatment plan patient improved throughout hospital stay without episodes of increasing shortness of breath, fever, or generalized weakness. Patient discharged home with a guarded prognosis. Patient to follow- up with primary care 1-2 days and pulmonology within 1-2 weeks. Assessment: Acute Covid 19 related pneumonia with secondary shortness of breath Fever secondary to covid 19 infection lymphopenia History of congestive heart failure Morbid obesity with a BMI 61.1 Obstructive sleep apnea with CPAP Chronic right elevated hemidiaphragm Osteoarthritis Gout Glaucoma History of compression fractures of T11 Fibromyalgia Full code Health Concerns: The complexity of medical comorbidities Covid 19 pneumonia Pertinent Studies: Serial chest x-rays consistent of Covid 19 pneumonia Procedures: None performed Patient Condition at Discharge: Fair Plan - Discharge Summary New Discharge Prescriptions: New Dexamethasone [Decadron] 6 mg PO DAILY 8 Days #8 tablet Rivaroxaban [Xarelto] 10 mg PO DAILY 30 Days #30 tab Continue Furosemide [Lasix] 40 mg PO DAILY #30 tab Colchicine 1.2 mg PO DIRECTED Spironolactone [Aldactone] 25 mg PO DAILY Zinc 50 mg PO DAILY Vitamin C W/ Zinc 1 tab PO DAILY Meloxicam [Mobic] 15 mg PO DAILY Albuterol Inhaler [Ventolin Hfa Inhaler] 1 - 2 puff INHALATION RT-Q6H PRN PRN Reason: Shortness Of Breath Cetirizine HCl [Zyrtec] 10 mg PO DAILY Cholecalciferol [Vitamin D3 (25 Mcg = 1000 Iu)] 250 mcg PO DAILY Discharge Medication List Furosemide [Lasix] 40 mg PO DAILY #30 tab 03/03/15 [Rx] Colchicine 1.2 mg PO DIRECTED 12/23/17 [History] Albuterol Inhaler [Ventolin Hfa Inhaler] 1 - 2 puff INHALATION RT-Q6H PRN 02/19 [History] Cetirizine HCl [Zyrtec] 10 mg PO DAILY 06/11/20 [History] Cholecalciferol [Vitamin D3 (25 Mcg = 1000 Iu)] 250 mcg PO DAILY 06/11/20 [History] Meloxicam [Mobic] 15 mg PO DAILY 06/11/20 [History] Spironolactone [Aldactone] 25 mg PO DAILY 06/11/20 [History] Vitamin C W/ Zinc 1 tab PO DAILY 06/11/20 [History] Zinc 50 mg PO DAILY 06/11/20 [History] Dexamethasone [Decadron] 6 mg PO DAILY 8 Days #8 tablet 06/14/20 [Rx] Rivaroxaban [Xarelto] 10 mg PO DAILY 30 Days #30 tab 06/14/20 [Rx] Follow up Appointment(s)/Referral(s): Vipin Villafana MD [Primary Care Provider] - 1-2 days Indu Garcia MD [STAFF PHYSICIAN] - 2 Weeks Patient Instructions/Handouts: Coronavirus Disease 2019 (COVID-19) Activity/Diet/Wound Care/Special Instructions: Oxygen ordered through [facility]: #[phone] Discharge Disposition: HOME SELF-CARE
--- NOTE | 2020-06-20 07:53 | P.PN ---
Progress Note - Text Progress Note Date: 06/20/20 Physician clarification Congestive heart failure unspecified
== END 2020-06-15 17:46 | disposition home or self-care (01) | DRG 177 ==
LOC: EC 15:51 → 4SSUR 18:38
PROVIDERS: ADMIT Family Medicine; ATTEND Family Medicine
PROC: XW033E5 Introduction of Remdesivir Anti-infective into Peripheral Vein, Percutaneous Approach, New Technology Group 5 (ICD-10-PCS; principal; 2020-06-12)
DX: U07.1 COVID-19 (principal); J12.82 Pneumonia due to coronavirus disease 2019; K50.90 Crohn's disease, unspecified, without complications; M48.54XA Collapsed vertebra, not elsewhere classified, thoracic region, initial encounter for fracture; Z68.44 Body mass index [BMI] 60.0-69.9, adult; E66.01 Morbid (severe) obesity due to excess calories; D72.810 Lymphocytopenia; M19.90 Unspecified osteoarthritis, unspecified site; I50.9 Heart failure, unspecified; J98.6 Disorders of diaphragm; M79.7 Fibromyalgia; M51.36 Other intervertebral disc degeneration, lumbar region; Z96.1 Presence of intraocular lens; G47.33 Obstructive sleep apnea (adult) (pediatric); M10.9 Gout, unspecified; Z79.899 Other long term (current) drug therapy; Z88.1 Allergy status to other antibiotic agents; Z90.89 Acquired absence of other organs; Z90.49 Acquired absence of other specified parts of digestive tract; Z98.890 Other specified postprocedural states; Z87.01 Personal history of pneumonia (recurrent); Z98.42 Cataract extraction status, left eye; Z98.41 Cataract extraction status, right eye; Z83.3 Family history of diabetes mellitus; Z80.41 Family history of malignant neoplasm of ovary; Z82.49 Family history of ischemic heart disease and other diseases of the circulatory system; Z84.1 Family history of disorders of kidney and ureter; Z83.49 Family history of other endocrine, nutritional and metabolic diseases; Z84.89 Family history of other specified conditions
CPT/HCPCS: 36415; 71045; 80053; 82728; 83605; 83615; 83735; 83880; 84145; 85025; 85379; 85610; 85730; 86140; 87040; 87635; 93005; 94640; 94760; 99285